=== PATIENT | female | born 1950 | race Caucasian/White ===

== ENCOUNTER 2016-08-23 11:00 | Outpatient (CLI) | payer OTHER ==
[~2016-08-23] VITALS: Ht 162.6 cm; Wt 73.6 kg
[~2016-08-23 11:00] MED LIST: BNZ20T PO; CTLP20T PO; INSASP10V SQ; INSU100V6 SQ; LOVA20TA2 PO; LVT.1T PO; MTF500T PO; SIMV10TA3 PO; TRAM50TA2 PO; TRHC5025 PO; TRIA1CAP4 PO
[2016-08-23] MEDS ORDERED: LISI-552 PO (11:03)
[2016-08-23] MEDS ORDERED: LOVA40TA2 PO (11:03)
[2016-08-23] MEDS ORDERED: GLIM2TAB PO (11:03)
[2016-08-23] MEDS ORDERED: PANT40TA2 PO (11:03)
[2016-08-23] MEDS ORDERED: LORA10TA7 PO (11:03)
[2016-08-23] MEDS ORDERED: LEVO75TA6 PO (11:03)
[2016-08-23] MEDS ORDERED: GABA-488 PO (11:03)
[2016-08-23] MEDS ORDERED: METF1000 PO (11:03)
--- OUTSIDE RECORDS SUMMARY | 2016-08-23 11:39 | XMS REPORT | Continuity of Care Document ---
Author Author [facility] Organization [facility] Address Unknown Phone Unavailable Care Team Providers Care Lens Cementer Name Role Phone BRYAN LITTLE MD PCP Insurance Providers Payer Name Policy Number Subscriber Name Relationship [employer] [id number] Venus Holcomb 19 Self / Same As Patient Advance Directives Directive Response Recorded Date/Time Advance Directives No 08/23/16 10:57am Health Care Power of Data Management Associate No 08/23/16 10:57am Organ Donor No 08/23/16 10:57am Resuscitation Status Full Code 08/23/16 10:57am Problems No problem information available. Medications Current Home Medications Medication Dose Units Route Directions Days/Qty Instructions Start Date Citalopram Hydrobromide 20 Mg 1 Each Oral Daily 03/29/10 Lisinopril 20 Mg 20 Mg Oral Daily 08/23/16 Metformin Hcl 1,000 Mg 1,000 Mg Oral Twice A Day 08/23/16 Glimepiride 2 Mg 2 Mg Oral Twice A Day 08/23/16 Pantoprazole Sodium 40 Mg 40 Mg Oral Daily 08/23/16 Lovastatin 40 Mg 40 Mg Oral Daily 08/23/16 Levothyroxine Sodium 75 Mcg 75 Mcg Oral Daily 08/23/16 Gabapentin 300 Mg 600 Mg Oral Bedtime 08/23/16 Loratadine 10 Mg 10 Mg Oral Daily 08/23/16 Past Home Medications Medication Directions Ordered Status Levothyroxine Sodium (Levothroid) 100 Mcg Tablet, 225 Mcg Oral Daily Discontinued Lovastatin (Mevacor) 20 Mg Tablet, 1 Each Oral Daily With Supper 03/27/10 Discontinued Tramadol Hcl 50 Mg Tablet, 50 Mg Oral As Needed 03/27/10 Discontinued Insulin Human Lispro 100 U/Ml Vial, 12 U Sub-Q Three Times A Day Before Meals 03/27/10 Discontinued Insulin Glargine,Hum.rec.anlog 100 Unit/1 Ml Vial, 18 Unit Sub-Q Bedtime 10/01 Discontinued Triamterene/Hctz 1 Ea Cap, 1 Ea Oral Daily 03/27/10 Discontinued Benazepril Hcl 20 Mg Tablet, 1 Each Oral Daily 03/27/10 Discontinued Metformin Hcl (Glucophage) 500 Mg Tablet, 1 Each Oral Twice A Day With Meals 03/29/10 Discontinued Triamterene/Hydrochlorothiazid 1 Each Capsule, 1 Each Oral Daily 03/29/10 Discontinued Simvastatin 10 Mg Tablet, 10 Mg Oral Daily 03/29/10 Discontinued Social History Social History Problem Response Recorded Date/Time Alcohol Use Denies Use 08/23/2016 10:57am Recreational Drug Use No 08/23/2016 10:57am Recent Foreign Travel No 08/23/2016 10:56am Recent Infectious Disease Exposure No 08/23/2016 10:56am Sexually Transmitted Disease No 08/23/2016 10:57am HIV/AIDS No 08/23/2016 10:57am Smoking Status Never a Smoker 08/23/2016 10:57am Recent Hopitalizations No 08/23/2016 10:57am Sexually Transmitted Disease No 08/23/2016 10:57am Query Response Start Date Stop Date Smoking Status Never a Smoker Hospital Discharge Instructions No hospital discharge instructions. Plan of Care Discharge Date 08/23/16 11:10am Prescriptions See Medication Section Functional Status No functional status results. Allergies, Adverse Reactions, Alerts Allergen Type Severity Reaction Status Last Updated iodine ([id number]) Allergy Unknown Active 02/07/06 CONTRAST DYE Allergy Unknown Active 02/07/06 Immunizations No immunization records. Vital Signs Acute Vital Signs Vital Response Date/Time Height (Feet) 5 feet 08/23/2016 10:55am Height (Inches) 4.00 inches 08/23/2016 10:55am Height (Calculated Centimeters) 162.877106 cm 08/23/2016 10:55am Weight (Pounds) 162 pounds 08/23/2016 10:55am Weight (Ounces) 4.8 oz 08/23/2016 10:55am Weight (Calculated Grams) 75867.04 gm 08/23/2016 10:55am Weight (Calculated Kilograms) 73.969509 kilograms 08/23/2016 10:55am Calculated BMI 27.9 08/23/2016 10:55am Results No known relevant diagnostic tests, laboratory data and/or discharge summary. Procedures No known history of procedures. Encounters Encounter Location Arrival/Admit Date Discharge/Depart Date Attending Provider Departed Clinic [facility] 08/23/16 11:00am 08/23/16 11: 10am RALF MARTINEZ MD
== END 2016-08-23 11:10 ==
LOC: PREOP 11:00
PROVIDERS: ATTEND Surgery Pediatric Surgery
DX: Z01.818 Encounter for other preprocedural examination (principal); Z12.11 Encounter for screening for malignant neoplasm of colon; R19.7 Diarrhea, unspecified

== ENCOUNTER 2016-08-24 09:55 | Day surgery (SDC) | payer OTHER ==
[~2016-08-24 09:55] MED LIST changes: +GABA-488 PO; +GLIM2TAB PO; +LEVO75TA6 PO; +LISI-552 PO; +LORA10TA7 PO; +LOVA40TA2 PO; +METF1000 PO; +PANT40TA2 PO
[2016-08-24 10:00] VITALS: BP 178/74
--- OUTSIDE RECORDS SUMMARY | 2016-08-24 10:00 | XMS REPORT | Continuity of Care Document ---
Author Author [facility] Organization [facility] Address Unknown Phone Unavailable Care Team Providers Care Aviation Electrical Technician Name Role Phone BRYAN LITTLE MD PCP Insurance Providers Payer Name Policy Number Subscriber Name Relationship [employer] [id number] Venus Holcomb 19 Self / Same As Patient Advance Directives Directive Response Recorded Date/Time Advance Directives No 08/23/16 10:57am Health Care Power of Laundry Technician No 08/23/16 10:57am Organ Donor No 08/23/16 [...] Type Severity Reaction Status Last Updated iodine ([id number]) Allergy Unknown Active 02/07/06 CONTRAST DYE Allergy Unknown Active 02/07/06 Immunizations No immunization records. Vital Signs Acute Vital Signs Vital Response Date/Time Height (Feet) 5 feet 08/23/2016 10:55am Height (Inches) 4.00 inches 08/23/2016 10:55am Height (Calculated Centimeters) 162.542573 cm 08/23/2016 10:55am Weight (Pounds) 162 pounds 08/23/2016 10:55am Weight (Ounces) 4.8 oz 08/23/2016 10:55am Weight (Calculated Grams) 93929.04 gm 08/23/2016 10:55am Weight (Calculated Kilograms) 73.881824 kilograms 08/23/2016 10:55am Calculated BMI 27.9 08/23/2016 10:55am Results No known relevant diagnostic tests, laboratory data and/or discharge summary. Procedures No known history of procedures. Encounters Encounter Location Arrival/Admit Date Discharge/Depart Date Attending Provider Departed Clinic [facility] 08/23/16 11:00am 08/23/16 11: 10am RALF MARTINEZ MD
--- OUTSIDE RECORDS SUMMARY | 2016-08-24 10:00 | XMS REPORT | Continuity of Care Document ---
Author Author [facility] Organization [facility] Address Unknown Phone Unavailable Care Team Providers Care Ambulance Mechanic Name Role Phone BRYAN LITTLE MD PCP Insurance Providers Payer Name Policy Number Subscriber Name Relationship [employer] [id number] Venus Holcomb 19 Self / Same As Patient Advance Directives Directive Response Recorded Date/Time Advance Directives No 08/23/16 10:57am Health Care Power of Maintenance Carpenter No 08/23/16 10:57am Organ Donor No 08/23/16 [...] Type Severity Reaction Status Last Updated iodine ([id number]) Allergy Unknown Active 02/07/06 CONTRAST DYE Allergy Unknown Active 02/07/06 Immunizations No immunization records. Vital Signs Acute Vital Signs Vital Response Date/Time Height (Feet) 5 feet 08/23/2016 10:55am Height (Inches) 4.00 inches 08/23/2016 10:55am Height (Calculated Centimeters) 162.605854 cm 08/23/2016 10:55am Weight (Pounds) 162 pounds 08/23/2016 10:55am Weight (Ounces) 4.8 oz 08/23/2016 10:55am Weight (Calculated Grams) 94280.04 gm 08/23/2016 10:55am Weight (Calculated Kilograms) 73.331396 kilograms 08/23/2016 10:55am Calculated BMI 27.9 08/23/2016 10:55am Results No known relevant diagnostic tests, laboratory data and/or discharge summary. Procedures No known history of procedures. Encounters Encounter Location Arrival/Admit Date Discharge/Depart Date Attending Provider Departed Clinic [facility] 08/23/16 11:00am 08/23/16 11: 10am RALF MARTINEZ MD
[2016-08-24] MEDS ORDERED: NS IV 500 ML 500 ML IV ONE (10:15)
[2016-08-24] MEDS ORDERED: FLUMAZENIL (ROMAZICON) 0.1 MG/ML 5 ML VIAL INJ PRN (10:15)
[2016-08-24] MEDS ORDERED: NALOXONE 0.4 MG/ML 1 ML (NARCAN) VIAL IVP PRN (10:15)
[2016-08-24] MEDS ORDERED: MIDAZOLAM 2 MG/2 ML (VERSED) VIAL ONE ×3 (10:33→10:34)
[2016-08-24] MEDS ORDERED: LIDOCAINE JELLY 2% (XYLOCAINE) 5 ML TUBE ONE (10:34)
[2016-08-24] MEDS ORDERED: fentaNYL INJECTION 100 MCG/2 ML AMP ONE ×2 (10:34)
--- NOTE | 2016-08-24 10:43 | Progress Note-Pre Operative ---
Pre-Operative Progress Note H&P Reviewed The H&P was reviewed, patient examined and no changes noted. Date H&P Reviewed: Aug 24, 2016 Time H&P Reviewed: 10:30 Pre-Operative Diagnosis: family hx colon cancer RALF MARTINEZ MD Aug 24, 2016 10:43 am
--- NOTE | 2016-08-24 10:43 | Conscious Sedation/ASA ---
Conscious Sedation Pre-Proced Time Reviewed: 10:30 ASA Class: 2 Airway Mallampati Classification: ([place]mitt appropriate class) I. II. III, IV Lungs Heart ASA score ASA 1: a normal healthy patient ASA 2: a patient with a mild systemic disease (mid diabetes, controlled hypertension, obesity ASA 3: a patient with a severe systemic disease that limits activity (angina , COPD, prior Myocardial infarction) ASA 4: a patient with an incapacitating disease that is a constant threat to life (CHF, renal failure) ASA 5: a moribund patient not expected to survive 24 hrs. (ruptured aneurysm) ASA 6: a declared brain patient whose organs are being harvested. For emergent operations, add the letter E after the classification Grade 2 Sedation Plan: Analgesia, Amnesia, Plan communicated to team members, Discussed options with patient/fam, Discussed risks with patient/fam Note The patient is an appropriate candidate to undergo the planned procedure, sedation, and anesthesia. The patient immediately re-assessed prior to indication. RALF MARTINEZ MD Aug 24, 2016 10:43 am
[2016-08-24] MEDS ORDERED: HYDROcodone/APAP 5 MG/325 MG (LORTAB) TAB PO PRN (10:45)
[2016-08-24] MEDS ORDERED: ACETAMINOPHEN 325 MG TABLET/CAPLET (TYLENOL) PO PRN (10:45)
[2016-08-24] MEDS ORDERED: morphine INJ 10 MG/ML 1ML (SYR OR VIAL) IV PRN (10:45)
[2016-08-24] MEDS ORDERED: ONDANSETRON 4 MG/2 ML (SDV) Z0FRAN IV PRN (10:45)
[2016-08-24] MEDS: fentaNYL INJECTION 100 MCG/2 ML AMP IVP PRN ×2 (10:48→10:55)
[2016-08-24] MEDS: MIDAZOLAM 2 MG/2 ML (VERSED) VIAL IVP PRN ×2 (10:50→11:00)
--- NOTE | 2016-08-24 11:15 | Progress Note-Post Operative ---
Post-Operative Progess Note Pre-Operative Diagnosis family hx colon cancer Post-Operative Diagnosis chronic stage 2 ext and int hemorrhoids, HP polyp rectosigmoid jxn(2mm), moderate sigmoid diverticulisosis. Post-Op Procedure Note Date of Procedure: Aug 24, 2016 Name of Procedure: Colonoscopy with bx Anesthesia Type CS Estimated blood loss (mL): minimal Specimen(s) collected rectosigmoid polyp RALF MARTINEZ MD Aug 24, 2016 11:15 am
--- NOTE | 2016-08-24 11:18 | Discharge Inst-Surgical ---
D/C Lap Instructions-KIDO New, Converted, or Re-Newed RX: RX on Chart Follow Up 5 years Activity as tolerated High Fiber Diet 25g or more per day Avoid Alcohol, Caffeine, Spicy Agenda and Acid foods. Drink 64 fluid oz or more of fluids per day. Symptoms to Report: Fever over 101 degree F, Nausea/Vomiting If any problems/questions: Contact your physician or go to Emergency Room RALF MARTINEZ MD Aug 24, 2016 11:17 am
[2016-08-24 11:20] VITALS: BP 137/69
[2016-08-24 11:50] VITALS: BP 148/77
--- NOTE | 2016-08-25 22:15 | PROCEDURE REPORT ---
PROCEDURE PHYSICIAN: RALF SAMPSON DATE OF PROCEDURE: 08/24/2016 ATTENDING PRIMARY REPRODUCTION PRODUCTION MANAGER: Dari Key APRN. PREOPERATIVE DIAGNOSIS: Family history of colon cancer. POSTOPERATIVE DIAGNOSES: 1. Chronic, stage II external and internal hemorrhoids. 2. Small hyperplastic polyp of the rectosigmoid junction approximately 2 mm in size. 3. Moderate severity sigmoid diverticulosis. PROCEDURE: Colonoscopy with biopsy. SURGEON: Dr. Sampson. ANESTHESIA: Conscious sedation. ESTIMATED BLOOD LOSS: Minimal. FINDINGS: 1. Chronic, stage II external and internal hemorrhoids. 2. Small hyperplastic polyp of the rectosigmoid junction approximately 2 mm in size. A moderate severity sigmoid diverticulosis with no mucosal inflammatory changes to indicate any active diverticulitis. 3. The remainder of the colon was normal. DISPOSITION: The patient tolerated the procedure well. BRIEF HISTORY: Mrs. Venus Holcomb is a 66-year-old female in need of a follow-up colonoscopy. She reports her last colonoscopy was approximately 7 or 8 years ago. She reports that she does have some occasional episodes of diarrhea as well as crampy abdominal pain. However, she does have a history of irritable bowel syndrome. She also does have a family history of colon cancer with her father having the disease. She does not report any red blood per rectum nor any dark tarry stools. PROCEDURE: The patient was brought to the endoscopy suite, laid in the left lateral decubitus position. After adequate IV pain and sedative medications and conscious sedation anesthesia, a digital rectal examination was performed. Chronic, stage II external and internal hemorrhoids were identified which were not actively edematous nor inflamed and no bleeding. Normal sphincter tone was felt and there were no palpable masses. The endoscope was then intubated into the anus and the rectum gently insufflated. The endoscope was then advanced through the valves of Aceves the rectum. At the level of the rectosigmoid junction was a small hyperplastic polyp approximately 2 mm in size. This was biopsied and destroyed using forceps and electrocautery with visualization of good hemostasis. The endoscope was then advanced through the sigmoid colon where a moderate sigmoid diverticulosis identified. There were no mucosal inflammatory changes to indicate any active diverticulitis. The endoscope was then advanced through the remainder of the descending, transverse, and ascending colon to the cecum. These segments were normal. The endoscope was then slowly withdrawn while taking a second look and suctioning of residual air with no additional findings. The patient tolerated the procedure well. We will have her continue with medical management with a high fiber diet with at least 30 grams of fiber per day, as well as at least 64 fluid ounces of water daily to promote soft stools on a daily basis. With a history of the polyp as well as family history of colon cancer, we will recommend a follow-up colonoscopy every 5 years. Job ID: [id number] Dictated Date: 08/24/2016 11:11:57 Advertising Space Clerk Date: 08/25/2016 22:03:28 / timmy
== END 2016-08-24 12:20 | disposition home or self-care (01) ==
LOC: ENDO 09:55
PROVIDERS: ATTEND Surgery Pediatric Surgery
DX: Z12.11 Encounter for screening for malignant neoplasm of colon (principal); K63.5 Polyp of colon; K64.1 Second degree hemorrhoids; K57.30 Diverticulosis of large intestine without perforation or abscess without bleeding; Z80.0 Family history of malignant neoplasm of digestive organs
CPT/HCPCS: 88305

== ENCOUNTER 2017-12-31 17:10 | Emergency (ER) | payer OTHER, MEDICARE ==
[~2017-12-31] VITALS: Ht 162.6 cm; Wt 70.3 kg
[~2017-12-31 17:10] MED LIST changes: -METF1000 PO; +METF10002 PO
[2017-12-31] MEDS ORDERED: KETOROLAC 30 MG/ML VIAL IVP ONE (17:30)
[2017-12-31] MEDS ORDERED: fentaNYL INJECTION 100 MCG/2 ML AMP IVP ONE (17:30)
[2017-12-31] MEDS ORDERED: ONDANSETRON 4 MG/2 ML (SDV) Z0FRAN IVP ONE ×2 (17:30→18:00)
[2017-12-31] MEDS ORDERED: NS IV 1000 ML 1,000 ML IV SCH (17:30)
--- NOTE | 2017-12-31 17:32 | ED Abdominal Pain ---
General Stated Complaint: L SIDE PAIN, POSS KIDNEY STONE Source of Information: Patient Exam Limitations: No Limitations History of Present Illness Date Seen by Provider: Dec 31, 2017 Time Seen by Provider: 17:28 Initial Comments Patient is a 67-year-old female who comes in with left lower flank pain that radiates into her back for 2 days and severe nausea. She reports the pain has just gotten worse over the past 2 days. She reports having a history of kidney stones and she says that this feels very similar to a kidney stone pain. Timing/Duration: 1-2 Days Severity/Quality: Moderate Location: LLQ, Flank Radiation: Back Activities at Onset: None Associated Symptoms: Back Pain, Nausea/Vomiting Allergies and Home Medications Allergies Coded Allergies: iodine (Verified Allergy, Unknown, 02/07/06) Uncoded Allergies: CONTRAST DYE (Allergy, Unknown, 02/07/06) Home Medications Ciprofloxacin HCl 500 Mg Tablet, 500 MG PO BID Prescribed by: TEDDY CASTELLANOS on 12/31/171941 Citalopram Hydrobromide 20 Mg Tablet, 1 EACH PO DAILY, (Reported) Gabapentin 300 Mg Capsule, 600 MG PO HS, (Reported) Glimepiride 2 Mg Tablet, 2 MG PO BID, (Reported) Hydrocodone Bit/Acetaminophen 1 Tab Tab, 1 EACH PO Q4H PRN for PAIN-MODERATE Prescribed by: TEDDY CASTELLANOS on 12/31/171941 Levothyroxine Sodium 75 Mcg Tablet, 75 MCG PO DAILY, (Reported) Lisinopril 20 Mg Tablet, 20 MG PO DAILY, (Reported) Loratadine 10 Mg Tablet, 10 MG PO DAILY, (Reported) Lovastatin 40 Mg Tablet, 40 MG PO DAILY, (Reported) Metformin HCl 1,000 Mg Tablet, 1,000 MG PO BID, (Reported) Metronidazole 500 Mg Tablet, 500 MG PO BID Prescribed by: TEDDY CASTELLANOS on 12/31/171941 Ondansetron 4 Mg Tab.rapdis, 4 MG PO Q6H PRN for NAUSEA/VOMITING Prescribed by: TEDDY CASTELLANOS on 12/31/171941 Pantoprazole Sodium 40 Mg Tablet.dr, 40 MG PO DAILY, (Reported) Patient Home Medication List Home Medication List Reviewed: Yes Review of Systems Constitutional: see HPI; No chills, No diaphoresis EENTM: See HPI; No Blurred Vision, No Double Vision Respiratory: See HPI; Denies Cough, Denies Orthopnea Cardiovascular: See HPI; Denies Chest Pain, Denies Edema Gastrointestinal: See HPI, Abdominal Pain (left lower quadrant/flank pain) Genitourinary: See HPI, Flank Pain, Pain Musculoskeletal: see HPI, back pain; No joint pain, No joint swelling Skin: see HPI; No change in color, No change in hair/nails Psychiatric/Neurological: See HPI; Denies Anxiety, Denies Depressed Endocrine: See HPI; Denies Excessive Sweating, Denies Flushing Hematologic/Lymphatic: See HPI; Denies Anemia, Denies Blood Clots All Other Systems Reviewed Negative Unless Noted: Yes Past Jdnfcob-Ftywrg-Cwknrc Hx Past Med/Social Hx: Reviewed Nursing Past Med/Soc Hx Patient Social History Recent Foreign Travel: No Contact w/Someone Who Travel: No Recent Hopitalizations: No Immunizations Up To Date Date of Pneumonia Vaccine: Apr 07, 2015 Date of Influenza Vaccine: Apr 02, 2016 Seasonal Allergies Seasonal Allergies: Yes Past Medical History Gallbladder High Cholesterol, Hypertension Headaches /Migraines Reproductive Disorders: No Sexually Transmitted Disease: No HIV/AIDS: No Kidney Stones Gastroesophageal Reflux, Chronic Diarrhea, Irritable Bowel Arthritis Diabetes, Non-Insulin dep Adverse Reaction/Blood Tranf: No Family Medical History Reviewed Nursing Family Hx Physical Exam Vital Signs Vital Signs - First Documented 12/31/17 12/31/17 17:15 19:54 Temp 97.6 Pulse 72 Resp 17 B/P (MAP) 121/84 (96) Pulse Ox 96 O2 Delivery Room Air Capillary Refill : Height/Weight/BMI Height: 5', 4.00" Weight: 162lbs 4.8oz, [id number] Method: ,27.9BMI General Appearance: WD/WN, no apparent distress HEENT: PERRL/EOMI, normal ENT inspection, TMs normal, pharynx normal Neck: non-tender, full range of motion, supple, normal inspection Respiratory: chest non-tender, lungs clear, normal breath sounds, no respiratory distress, no accessory muscle use Cardiovascular: regular rate, rhythm, no edema, no gallop, no JVD, no murmur Gastrointestinal: normal bowel sounds, soft, no organomegaly, no pulsatile mass , tenderness (patient is very tender in her left lower quadrant.) Extremities: normal range of motion, non-tender, normal inspection, no pedal edema, no calf tenderness Back: normal inspection, no CVA tenderness, no vertebral tenderness Neurologic/Psychiatric: alert, normal mood/affect, oriented x 3 Skin: normal color, warm/dry Lymphatic: no adenopathy Progress/Results/Core Measures Results/Orders Lab Results Laboratory Tests Test 12/31/17 17:11 12/31/17 17:15 12/31/17 17:30 Range/Units Lab Scanned Report Referred Lab Report [id number] Urine Color YELLOW Urine Clarity CLEAR Urine pH 5 5-9 Urine Specific [place] 1.020 1.016-1.022 Urine Protein 3+ H NEGATIVE Urine Glucose (UA) 1+ H NEGATIVE Urine Ketones NEGATIVE NEGATIVE Urine Nitrite NEGATIVE NEGATIVE Urine Bilirubin NEGATIVE NEGATIVE Urine Urobilinogen NORMAL NORMAL MG/DL Urine Leukocyte Esterase 3+ H NEGATIVE Urine RBC (Auto) 2+ H NEGATIVE Urine RBC NONE /HPF Urine WBC 50-100 H /HPF Urine Squamous Epithelial Cells 10-25 H /HPF Urine Crystals NONE /LPF Urine Bacteria MODERATE H /HPF Urine Casts NONE /LPF Urine Mucus NEGATIVE /LPF Urine Culture Indicated YES White Blood Count 8.9 4.3-11.0 10^3/uL Red Blood Count 4.93 4.35-5.85 10^6/uL Hemoglobin 14.3 11.5-16.0 G/DL Hematocrit 41 35-52 % Mean Corpuscular Volume 83 80-99 FL Mean Corpuscular Hemoglobin 29 25-34 PG Mean Corpuscular Hemoglobin Concent 35 32-36 G/DL Red Cell Distribution Width 12.4 10.0-14.5 % Platelet Count 230 130-400 10^3/uL Mean Platelet Volume 11.1 H 7.4-10.4 FL Neutrophils (%) (Auto) 65 42-75 % Lymphocytes (%) (Auto) 24 12-44 % Monocytes (%) (Auto) 8 0-12 % Eosinophils (%) (Auto) 3 0-10 % Basophils (%) (Auto) 0 0-10 % Neutrophils # (Auto) 5.8 1.8-7.8 X 10^3 Lymphocytes # (Auto) 2.1 1.0-4.0 X 10^3 Monocytes # (Auto) 0.7 0.0-1.0 X 10^3 Eosinophils # (Auto) 0.2 0.0-0.3 10^3/uL Basophils # (Auto) 0.0 0.0-0.1 10^3/uL Sodium Level 140 135-145 MMOL/L Potassium Level 4.0 3.6-5.0 MMOL/L Chloride Level 107 98-107 MMOL/L Carbon Dioxide Level 21 21-32 MMOL/L Anion Gap 12 5-14 MMOL/L Blood Urea Nitrogen 20 H 7-18 MG/DL Creatinine 1.17 0.60-1.30 MG/DL Estimat Glomerular Filtration Rate 46 BUN/Creatinine Ratio 17 Glucose Level 161 H 70-105 MG/DL Calcium Level 9.5 8.5-10.1 MG/DL Total Bilirubin 0.6 0.1-1.0 MG/DL Aspartate Amino Transf (AST/SGOT) 17 5-34 U/L Alanine Aminotransferase (ALT/SGPT) 16 0-55 U/L Alkaline Phosphatase 76 40-136 U/L Total Protein 7.0 6.4-8.2 GM/DL Albumin 4.3 3.2-4.5 GM/DL Micro Results Microbiology 12/31/17 Urine Culture - Final, Complete Escherichia coli See Comments Sent To l My Orders Orders - MELODY LARA Saline Lock/Iv-Start (12/31/17 17:21) Ua Culture If Indicated (12/31/17 17:21) Ns Iv 1000 Ml (Sodium Chloride 0.9%) (12/31/17 17:30) Ketorolac Injection (Toradol Injection) (12/31/17 17:30) Fentanyl Injection (Sublimaze Injection (12/31/17 17:30) Ondansetron Injection (Zofran Injectio (12/31/17 17:30) Comprehensive Metabolic Panel (12/31/17 17:27) Cbc With Automated Diff (12/31/17 17:27) Ondansetron Injection (Zofran Injectio (12/31/17 18:00) Ct Abd/Pelvis Wo(Kidney Stone) (12/31/17 18:20) Abdomen/Kub 1view (12/31/17 18:20) Urine Culture (12/31/17 17:15) Lisinopril Tablet (Zestril Tablet) (12/31/17 20:15) Iv Push [employer] (12/31/17 ) Medications Given in ED Vital Signs/I&O 12/31/17 12/31/17 17:15 19:54 Temp 97.6 97.6 Pulse 72 69 Resp 17 15 B/P (MAP) 121/84 (96) 180/93 Pulse Ox 96 O2 Delivery Room Air Room Air Progress Progress Note : Progress Note Patient agrees with plan to discharge and the use of antibiotics. The case was reviewed with Dr. Castellanos and he agrees with plan of care. Diagnostic Imaging Diagonstic Imaging: Xray, CT Plain Films/CT/US/NM/MRI: abdomen Comments NAME: ERICA VEE [facility] REC#: [id number] PT STATUS: REG ER : 1950 PHYSICIAN: MELODY LARA ADMIT DATE: 12/31/17/ER Signed Date of Exam: 12/31/17 ABDOMEN/KUB 1VIEW INDICATION: Left-sided back pain and flank pain. KUB obtained at 6:39 p.m. FINDINGS: There are surgical clips in the right upper quadrant. There is moderate stool throughout the colon, but no overt obstruction or ileus. There are two calcifications overlying the lower pole of the left kidney, each measuring about 5-6 mm in diameter. Bony structures are unremarkable. IMPRESSION: There are two adjacent calcifications overlying the lower pole of the left kidney. No other abnormal calcifications are visualized. The bowel gas pattern is unremarkable. Patient appears to have had prior cholecystectomy. Dictated by: Dictated on workstation # [id number] Dict: 12/31/171841 Trans: 12/31/171848 Interpreted by: NAN GARCIA MD Electronically signed by: NAN GARCIA MD 12/31/171848 NAME: ERICA VEE [facility] REC#: [id number] PHYSICIAN: MELODY LARA CC: MARYSOL LARA STEPHEN D MD Page 2 of 2 RADIOLOGY REPORT VIA [facility]. [place], [place] CC: MARYSOL LARA STEPHEN D MD Page 1 of 2 RADIOLOGY REPORT NAME: ERICA VEE [facility] REC#: [id number] PT STATUS: REG ER : 1950 PHYSICIAN: MELODY LARA ADMIT DATE: 12/31/17/ER Signed Date of Exam: 12/31/17 CT ABD/PELVIS WO(KIDNEY STONE) PROCEDURE: CT urinary tract, rule out kidney stone. TECHNIQUE: Multiple contiguous axial images were obtained through the abdomen and pelvis without the use of intravenous contrast. INDICATION: Left-sided flank pain. Comparison is made with prior CT from 03/28/2010. FINDINGS: The lung bases are clear. No discrete liver mass is identified. The gallbladder is surgically absent. The pancreas and spleen are unremarkable. No adrenal mass is identified. There are bilateral nonobstructing renal calculi. Largest calculus is in the lower pole of the left kidney measuring 8 mm. No hydronephrosis or ureteral calculi are seen. Aorta is nonaneurysmal. Small and large bowel loops are normal caliber. There is diverticulosis of the descending colon and sigmoid. There is a suggestion of mild inflammation adjacent to the sigmoid, suspicious for acute diverticulitis. No abscess formation or bowel obstruction is seen. There is no free air. The bladder is unremarkable. IMPRESSION: 1. Bilateral nonobstructing nephrolithiases. No ureteral calculi or hydronephrosis is detected. 2. Findings suggestive of mild acute diverticulitis of the sigmoid colon. No abscess formation or bowel obstruction is identified. Dictated by: Dictated on workstation # [id number] Dict: 12/31/174 Trans: 12/31/171907 Interpreted by: CHEO BLACKMON MD Electronically signed by: CHEO BLACKMON MD 12/31/171907 Reviewed: Reviewed by Me Departure Impression Primary Impression: Diverticulitis Additional Impression: Urinary tract infection Qualified Codes: N39.0 - Urinary tract infection, site not specified Disposition: 01 HOME, SELF-CARE Condition: Stable/Unchanged Departure-Patient Inst. Decision time for Depature: 19:44 Referrals: [facility] (PCP) Primary Care Physician TARYN CAMACHO (Family) Primary Care Physician Patient Instructions: Diverticulosis (DC), Urinary Tract Infection, Adult (DC) Add. Discharge Instructions: Take medications as directed. Return back to the emergency room for any concerns as needed such as increased pain, nausea, vomiting. Follow-up with your doctor within 1 week for recheck. Scripts Ondansetron (Ondansetron Odt) 4 Mg Tab.rapdis 4 MG PO Q6H PRN for NAUSEA/VOMITING, #8 TAB 0 Refills Prov: TEDDY CASTELLANOS MD 12/31/17 Metronidazole (Metronidazole) 500 Mg Tablet 500 MG PO BID, #14 TAB 0 Refills Prov: TEDDY CASTELLANOS MD 12/31/17 Hydrocodone Bit/Acetaminophen (Hydrocodone/Acetaminophen 5/325mg Tablet) 1 Tab Tab 1 EACH PO Q4H PRN for PAIN-MODERATE, #12 TAB 0 Refills Prov: TEDDY CASTELLANOS MD 12/31/17 Ciprofloxacin HCl (Ciprofloxacin HCl) 500 Mg Tablet 500 MG PO BID, #14 TAB Prov: TEDDY CASTELLANOS MD 12/31/17 Work/School Note: Work Release Form Date Seen in the Emergency Department: Dec 31, 2017 Return to Work: Jan 03, 2018 Restrictions: No Restrictions MELODY LARA Dec 31, 2017 17:32
[2017-12-31 17:36] LABS: BASOPHILS % (AUTO) 0 % (0-10); EOSINOPHILS # (AUTO) 0.2 10^3/uL (0.0-0.3); EOSINOPHILS % (AUTO) 3 % (0-10); HEMATOCRIT 41 % (35-52); HEMOGLOBIN 14.3 G/DL (11.5-16.0); LYMPHOCYTES # (AUTO) 2.1 X 10^3 (1.0-4.0); LYMPHOCYTES % (AUTO) 24 % (12-44); MEAN CORPUSCULAR HEMOGLOBIN 29 PG (25-34); MEAN CORPUSCULAR HGB CONC 35 G/DL (32-36); MEAN CORPUSCULAR VOLUME 83 FL (80-99); MEAN PLATELET VOLUME 11.1 FL (7.4-10.4); MONOCYTES # (AUTO) 0.7 X 10^3 (0.0-1.0); MONOCYTES % (AUTO) 8 % (0-12); NEUTROPHILS # (AUTO) 5.8 X 10^3 (1.8-7.8); NEUTROPHILS % (AUTO) 65 % (42-75); PLATELET COUNT 230 10^3/uL (130-400); RED BLOOD COUNT 4.93 10^6/uL (4.35-5.85); RED CELL DISTRIBUTION WIDTH 12.4 % (10.0-14.5); WHITE BLOOD COUNT 8.9 10^3/uL (4.3-11.0)
[2017-12-31 17:59] LABS: ALBUMIN 4.3 GM/DL (3.2-4.5); BILIRUBIN,TOTAL 0.6 MG/DL (0.1-1.0); CALCIUM 9.5 MG/DL (8.5-10.1); CREATININE SERUM 1.17 MG/DL (0.60-1.30)
[2017-12-31 18:13] LABS: BILIRUBIN,URINE NEGATIVE (NEGATIVE); CLARITY,URINE CLEAR; COLOR,URINE YELLOW; GLUCOSE, URINE (UA) 1+ (NEGATIVE); KETONES,URINE NEGATIVE (NEGATIVE); LEUKOCYTE ESTERASE ,URINE 3+ (NEGATIVE); NITRITE,URINE NEGATIVE (NEGATIVE); PH,URINE 5 (5-9); PROTEIN,URINE 3+ (NEGATIVE); UROBILINOGEN,URINE NORMAL (NORMAL)
[2017-12-31 18:21] LABS: WBC,URINE 50-100 /HPF
[2017-12-31 18:22] LABS: BACTERIA,URINE MODERATE /HPF
--- NOTE | 2017-12-31 18:49 | Diagnostic Imaging Report ---
INDICATION: Left-sided back pain and flank pain. KUB obtained at 6:39 p.m. FINDINGS: There are surgical clips in the right upper quadrant. There is moderate stool throughout the colon, but no overt obstruction or ileus. There are two calcifications overlying the lower pole of the left kidney, each measuring about 5-6 mm in diameter. Bony structures are unremarkable. IMPRESSION: There are two adjacent calcifications overlying the lower pole of the left kidney. No other abnormal calcifications are visualized. The bowel gas pattern is unremarkable. Patient appears to have had prior cholecystectomy. Dictated by: Dictated on workstation # [id number]
--- NOTE | 2017-12-31 19:01 | Diagnostic Imaging Report ---
PROCEDURE: CT urinary tract, rule out kidney stone. TECHNIQUE: Multiple contiguous axial images were obtained through the abdomen and pelvis without the use of intravenous contrast. INDICATION: Left-sided flank pain. Comparison is made with prior CT from 03/28/2010. FINDINGS: The lung bases are clear. No discrete liver mass is identified. The gallbladder is surgically absent. The pancreas and spleen are unremarkable. No adrenal mass is identified. There are bilateral nonobstructing renal calculi. Largest calculus is in the lower pole of the left kidney measuring 8 mm. No hydronephrosis or ureteral calculi are seen. Aorta is nonaneurysmal. Small and large bowel loops are normal caliber. There is diverticulosis of the descending colon and sigmoid. There is a suggestion of mild inflammation adjacent to the sigmoid, suspicious for acute diverticulitis. No abscess formation or bowel obstruction is seen. There is no free air. The bladder is unremarkable. IMPRESSION: 1. Bilateral nonobstructing nephrolithiases. No ureteral calculi or hydronephrosis is detected. 2. Findings suggestive of mild acute diverticulitis of the sigmoid colon. No abscess formation or bowel obstruction is identified. Dictated by: Dictated on workstation # [id number]
[2017-12-31] MEDS ORDERED: ACHD5005 PO (19:42)
[2017-12-31] MEDS ORDERED: CIPR500T4 PO (19:42)
[2017-12-31] MEDS ORDERED: METR500T21 PO (19:42)
[2017-12-31] MEDS ORDERED: ONDA4TAB11 PO (19:42)
[2017-12-31 19:54] VITALS: BP 180/93
[2017-12-31] MEDS ORDERED: lisINopril 20 MG (PRINIVIL) TABLET PO ONE (20:15)
== END 2017-12-31 20:28 | disposition home or self-care (01) ==
LOC: EDUNIT# 17:10 → ER 17:11
DX: N39.0 Urinary tract infection, site not specified (principal); K57.32 Diverticulitis of large intestine without perforation or abscess without bleeding; E78.00 Pure hypercholesterolemia, unspecified; I10 Essential (primary) hypertension; G43.909 Migraine, unspecified, not intractable, without status migrainosus; K21.9 Gastro-esophageal reflux disease without esophagitis; M19.90 Unspecified osteoarthritis, unspecified site; E11.9 Type 2 diabetes mellitus without complications; Z87.442 Personal history of urinary calculi; Z91.041 Radiographic dye allergy status; Z79.84 Long term (current) use of oral hypoglycemic drugs
CPT/HCPCS: 36415; 74018; 74176; 80053; 81000; 85025; 87077; 87088; 87186; 96361; 96374; 96375; 96376

== ENCOUNTER 2018-01-29 05:41 | Outpatient (CLI) | payer OTHER, MEDICARE ==
[~2018-01-29] VITALS: Ht 162.6 cm; Wt 68.0 kg
[~2018-01-29 05:41] MED LIST changes: +ACHD5005 PO; +CIPR500T4 PO; +METR500T21 PO; +ONDA4TAB11 PO
[2018-01-29] MEDS ORDERED: LEVO25TA5 PO (13:24)
[2018-01-29] MEDS ORDERED: CITA20TA9 PO (13:24)
[2018-01-29] MEDS ORDERED: RANI-515 PO (13:26)
[2018-01-29] MEDS ORDERED: DICL35CA PO (13:26)
== END 2018-01-29 13:37 ==
LOC: PREOP 05:41
PROVIDERS: ATTEND Urology
DX: Z01.818 Encounter for other preprocedural examination (principal); N20.0 Calculus of kidney

== ENCOUNTER 2018-02-05 06:59 | Day surgery (SDC) | payer OTHER, MEDICARE ==
[~2018-02-05] VITALS: Ht 162.6 cm; Wt 68.0 kg
[~2018-02-05 06:59] MED LIST changes: +CITA20TA9 PO; +DICL35CA PO; +LEVO25TA5 PO; +RANI-515 PO
[2018-02-05 07:00] VITALS: BP 147/79
--- OUTSIDE RECORDS SUMMARY | 2018-02-05 07:02 | XMS REPORT ---
Author Author DUANE YEH [facility] Address [address] [place] [address] Care Team Providers Care Distributor Advertising Material Name Role Phone DUANE YEH Unavailable PROBLEMS Unknown Problems ALLERGIES Substance Reaction Event Type Date Status Contrast Allergy PreMed Pack Unknown Drug Allergy Apr, Active ENCOUNTERS Encounter Location Date Diagnosis [facility] [address] [facility] [id number] [address] Apr, Acute pain of right shoulder M25.511 IMMUNIZATIONS No Known Immunizations SOCIAL HISTORY Never Assessed REASON FOR VISIT Right shoulder/rib pain for about 1 month JStrasserRN PLAN OF CARE Activity Details Follow Up prn Reason: VITAL SIGNS Weight 158.4 lbs 2017-04-27 Temperature 97.8 degrees Fahrenheit 2017-04-27 Heart Rate 76 bpm 2017-04-27 Respiratory Rate 20 2017-04-27 Blood pressure systolic 138 mmHg 2017-04-27 Blood pressure diastolic 92 mmHg 2017-04-27 MEDICATIONS Medication Instructions Dosage Frequency Start Date End Date Duration Status Glimepiride 1 MG Orally Once a day 1 tablet with breakfast or the first main meal of the day 24h Active Metformin HCl 500 MG Orally Twice a day 1 tablet with meals 12h Active Levothyroxine Sodium 75 MCG Orally Once a day 1 tablet on an empty stomach in the morning 24h Active Cyclobenzaprine HCl 10 MG Orally Three times a day 1 tablet as needed 8h Apr, Apr, 7 days Active Lovastatin 10 MG Orally Once a day 1 tablet with a meal 24h Active Lisinopril 20 MG Orally Once a day 1 tablet 24h Active RESULTS No Results PROCEDURES Procedure Date Ordered Result Body Site [facility] VISIT ESTABLISHED PATIENT Apr 27, 2017 INSTRUCTIONS MEDICATIONS ADMINISTERED No Known Medications
[2018-02-05] MEDS ORDERED: LACTATED RINGERS 1,000 ML IV PRN (07:14)
[2018-02-05] MEDS ORDERED: cefTRIAXone INJECTION 1,000 MG in NS (IVPB) 50 ML IV ONE (07:15)
[2018-02-05] MEDS ORDERED: CATHETER FLUSH 10 ML SYR IV PRN (07:30)
--- NOTE | 2018-02-05 07:35 | Diagnostic Imaging Report ---
INDICATION: Nephrolithiasis. Comparison made with prior examination 12/31/2017. FINDINGS: There are surgical clips in right upper quadrant. Bowel gas pattern is nonspecific. There is a persistent stone projected over the left kidney. There are mild degenerative changes in the spine. IMPRESSION: Persistent left nephrolithiasis. No specific bowel gas pattern. Dictated by: Dictated on workstation # [id number]
--- NOTE | 2018-02-05 07:47 | Progress Note-Pre Operative ---
Pre-Operative Progress Note H&P Reviewed The H&P was reviewed, patient examined and no changes noted. Date Seen by Provider: Feb 05, 2018 Time Seen by Provider: 07:47 Date H&P Reviewed: Feb 05, 2018 Time H&P Reviewed: 07:47 Pre-Operative Diagnosis: LT RENAL STONES ULISSES BARRERA MD Feb 05, 2018 7:47 am
[2018-02-05] MEDS ORDERED: KETOROLAC 30 MG/ML VIAL ONE (08:40)
[2018-02-05] MEDS ORDERED: LIDOCAINE PF 2% 5 ML (XYLOCAINE) VIAL ONE (08:40)
[2018-02-05] MEDS ORDERED: proPOfol 200 MG/20 ML (DIPRIVAN) VIAL IV ONE (08:40)
[2018-02-05] MEDS ORDERED: FUROSEMIDE 40 MG/4 ML INJ (LASIX) ONE (08:40)
[2018-02-05] MEDS ORDERED: fentaNYL INJECTION 100 MCG/2 ML AMP ONE (08:41)
[2018-02-05] MEDS ORDERED: MIDAZOLAM 2 MG/2 ML (VERSED) VIAL ONE (08:41)
[2018-02-05] MEDS ORDERED: ONDANSETRON 4 MG/2 ML (SDV) Z0FRAN ONE (08:43)
[2018-02-05] MEDS ORDERED: SEVOFLURANE (ULTANE) 15 ML INHAL SOLN ONE (09:14)
--- NOTE | 2018-02-05 09:15 | Progress Note-Post Operative ---
Post-Operative Progess Note Surgeon (s)/Business Systems Administrator (s) Surgeon ULISSES BARRERA MD Business Systems Administrator: N/A Pre-Operative Diagnosis LT RENAL STONES Post-Operative Diagnosis SAME Procedure & Operative Findings Date of Procedure 02/05/18 Procedure Performed/Findings LT ESWL Anesthesia Type GENERAL Estimated Blood Loss Estimated blood loss (mL): N/A Specimens/Packing Specimens Removed N/A Packing: N/A ULISSES BARRERA MD Feb 05, 2018 9:15 am
--- NOTE | 2018-02-05 09:16 | Discharge Inst-Urology ---
Discharge Inst-Urology Discharge Medications New, Converted, or Re-newed RX: RX on Chart Patient Instructions/Follow Up Plan Please make appointment to been seen in office Saturday 02/17, DALI prior to it. DALI on way home Post ESWL instructions Increase oral fluids for 48 hours and then as needed. Diet and Activity as tolerated. If questions or concerns contact your physician Or seek help at emergency department. ULISSES BARRERA MD Feb 05, 2018 9:16 am
[2018-02-05] MEDS ORDERED: morphine INJ 10 MG/ML 1ML (SYR OR VIAL) IVP PRN (10:00)
[2018-02-05] MEDS ORDERED: MEPERIDINE (DEMEROL) INJ 50 MG/ML IVP PRN (10:00)
[2018-02-05] MEDS ORDERED: ONDANSETRON 4 MG/2 ML (SDV) Z0FRAN IVP PRN (10:00)
[2018-02-05 10:35] VITALS: BP 163/80
[2018-02-05 11:05] VITALS: BP 157/73
[2018-02-05 11:45] VITALS: BP 140/67
[2018-02-05] MEDS ORDERED: TAMS0.4C98 PO (13:19)
[2018-02-05] MEDS ORDERED: HYDR-3870 PO (13:19)
[2018-02-05] MEDS ORDERED: NITR-65 PO (13:19)
[2018-02-05 13:42] VITALS: BP 140/67
--- NOTE | 2018-02-05 14:54 | Anesthesia-General Post-Op ---
General Patient Condition Mental Status/LOC: Same as Preop Cardiovascular: Satisfactory Nausea/Vomiting: Absent Respiratory: Satisfactory Pain: Controlled Complications: Absent Post Op Complications Complications None Follow Up Care/Instructions Patient Instructions None needed. Anesthesia/Patient Condition Patient Condition Patient is doing well, no complaints, stable vital signs, no apparent adverse anesthesia problems. No complications reported per nursing. MITZI GOODE CRNA Feb 05, 2018 14:54
--- NOTE | 2018-02-05 15:20 | Diagnostic Imaging Report ---
INDICATION: Status post lithotripsy. TIME OF EXAM: 1:38 PM COMPARISON: Correlation is made to prior study earlier same day. FINDINGS: There has been fragmentation of the calculus overlying the left kidney seen this morning. No definite calculi along the course of the ureters is seen. No right-sided calculi are identified. There are surgical clips in the right upper quadrant. IMPRESSION: Fragmentation of the large calculus in the left kidney, status post lithotripsy. Dictated by: Dictated on workstation # [id number]
--- NOTE | 2018-02-05 15:48 | OPERATIVE REPORT ---
DATE OF SERVICE: 02/05/2018 PREOPERATIVE DIAGNOSIS: Left renal stones. POSTOPERATIVE DIAGNOSIS: Left renal stones. OPERATION PERFORMED: Left ESWL. SURGEON: Axel Barrera MD ANESTHESIA: General. COMPLICATIONS: None. DESCRIPTION OF PROCEDURE: Under satisfactory general anesthesia, the patient in supine position on the ESWL table, the left renal stones were localized. Shocks were delivered at a kV of 4. A total of 3000 shocks completely fragmented the stones. The patient received 40 mg of Lasix and 30 mg of Toradol IV at the end of the procedure. She tolerated the procedure and anesthesia well and was sent to recovery room in stable condition. Job ID: [id number] DocumentID: [id number] Dictated Date: 02/05/2018 09:35:36 Stranding Machine Operator Date: 02/05/2018 15:48:12 Dictated By: AXEL BARRERA MD
== END 2018-02-05 13:42 | disposition home or self-care (01) ==
LOC: SDC 06:59
PROVIDERS: ATTEND Urology
DX: N20.0 Calculus of kidney (principal); Z11.2 Encounter for screening for other bacterial diseases; K21.9 Gastro-esophageal reflux disease without esophagitis; F32.9 Major depressive disorder, single episode, unspecified; Z79.84 Long term (current) use of oral hypoglycemic drugs; Z79.899 Other long term (current) drug therapy; I10 Essential (primary) hypertension; E11.9 Type 2 diabetes mellitus without complications; E78.5 Hyperlipidemia, unspecified
CPT/HCPCS: 74018; 82962; 87081

== ENCOUNTER 2018-03-08 14:24 | Emergency (ER) | payer OTHER, MEDICARE ==
[~2018-03-08] VITALS: Ht 162.6 cm; Wt 74.8 kg
[~2018-03-08 14:24] MED LIST changes: +HYDR-3870 PO; +METF-399 PO; -METF10002 PO; +NITR-65 PO; +TAMS0.4C98 PO
--- NOTE | 2018-03-08 14:41 | ED Lower Extremity ---
General Chief Complaint: Lower Extremity Stated Complaint: HURT RT FOOT Source: patient Exam Limitations: no limitations History of Present Illness Date Seen by Provider: Mar 08, 2018 Time Seen by Provider: 14:38 Initial Comments To ER with reports of right foot being injured. She was moving her 's electric wheelchair and tried to put up the foot rest. Normally she gets out of the wheelchair to do this but this time she stayed in the wheelchair. She then asked him to control her causing the wheelchair to move forward and pinched the right foot between the foot rest in the back of the wheelchair. She is ambulatory but has pain with ambulation. Onset: just prior to arrival Severity: moderate Pain/Injury Location: right foot Modifying Factors: Worse With Movement Allergies and Home Medications Allergies Coded Allergies: Iodinated Contrast- Oral and IV Dye (Unverified Allergy, Unknown, 02/05/18) iodine (Verified Allergy, Unknown, 02/07/06) Home Medications Citalopram Hydrobromide 20 Mg Tablet, 20 MG PO DAILY, (Reported) Diclofenac Submicronized 35 Mg Capsule, 35 MG PO BID, (Reported) Glimepiride 2 Mg Tablet, 2 MG PO BID, (Reported) Hydrocodone/Acetaminophen 1 Each Tablet, 1-2 EACH PO Q4H PRN for PAIN Prescribed by: JAME RUST on 02/05/181318 Levothyroxine Sodium 25 Mcg Tablet, 25 MCG PO DAILY, (Reported) Lisinopril 20 Mg Tablet, 20 MG PO DAILY, (Reported) Lovastatin 40 Mg Tablet, 40 MG PO DAILY, (Reported) Metformin HCl 1,000 Mg Tablet, 1,000 MG PO BID, (Reported) Nitrofurantoin Monohyd/M-Cryst 100 Mg Capsule, 1 TAB PO BID Prescribed by: JAME RUST on 02/05/181318 Ranitidine HCl 150 Mg Tablet, 150 MG PO DAILY, (Reported) Tamsulosin HCl 0.4 Mg Cap, 0.4 MG PO DAILY Prescribed by: JAME RUST on 02/05/181318 Patient Home Medication List Home Medication List Reviewed: Yes Review of Systems Constitutional: see HPI EENTM: see HPI Respiratory: no symptoms reported Cardiovascular: no symptoms reported Genitourinary: no symptoms reported Musculoskeletal: see HPI Skin: no symptoms reported Psychiatric/Neurological: No Symptoms Reported Past Odsvapi-[id number]-[id number] Hx Patient Social History Recent Foreign Travel: No Contact w/Someone Who Travel: No Recent Hopitalizations: No Immunizations Up To Date Date of Pneumonia Vaccine: Apr 07, 2015 Date of Influenza Vaccine: Apr 02, 2016 Seasonal Allergies Seasonal Allergies: Yes Past Medical History Surgeries: Yes (hysterectomy, eswls x 2, LEFT THYROIDECTOMY) Adenoidectomy, Gallbladder, Tonsillectomy Respiratory: No Cardiac: Yes High Cholesterol, Hypertension Neurological: Yes Headaches /Migraines Reproductive Disorders: No Sexually Transmitted Disease: No HIV/AIDS: No Kidney Stones Gastrointestinal: Yes Gastroesophageal Reflux, Diverticulosis, Irritable Bowel Musculoskeletal: Yes Arthritis Endocrine: Yes Diabetes, Non-Insulin dep Cancer: No Psychosocial: No Integumentary: No Blood Disorders: No Adverse Reaction/Blood Tranf: No Physical Exam Vital Signs Vital Signs - First Documented 03/08/18 14:38 Temp 97.8 Pulse 71 Resp 18 B/P (MAP) 175/88 (117) Pulse Ox 97 O2 Delivery Room Air Capillary Refill : Height, Weight, BMI Height: 5'4.00" Weight: 150lbs. 0.0oz. [id number]; 25.8 BMI Method:Stated General Appearance: WD/WN, no apparent distress HEENT: PERRL/EOMI, normal ENT inspection Neck: non-tender, full range of motion Respiratory: normal breath sounds, no respiratory distress, no accessory muscle use Hips: bilateral hip non-tender, bilateral hip normal inspection, bilateral hip normal range of motion Legs: bilateral leg non-tender, bilateral leg normal inspection, bilateral leg normal range of motion Knees: bilateral knee non-tender, bilateral knee normal inspection, bilateral knee normal range of motion Ankles: bilateral ankle non-tender, bilateral ankle normal inspection, bilateral ankle normal range of motion Feet: right foot pain, right foot soft tissue tenderness, right foot other (is no swelling but there is a bit of erythema over the dorsal aspect of the foot at the first MTP joint.) Neurologic/Tendon: normal sensation, normal motor functions Neurologic/Psychiatric: alert, normal mood/affect, oriented x 3 Skin: normal color, warm/dry Progress/Results/Core Measures Results/Orders My Orders Orders - DEBORAH COLE APRN Foot, Right, 3 View (03/08/18 14:38) Vital Signs/I&O 03/08/18 14:38 Temp 97.8 Pulse 71 Resp 18 B/P (MAP) 175/88 (117) Pulse Ox 97 O2 Delivery Room Air Departure Communication (Admissions) There is a nondisplaced oblique fracture of the shaft of the second and third metatarsal right foot. Given a walking boot Impression Primary Impression: Contusion of foot Additional Impression: Foot fracture, right Disposition: 01 HOME, SELF-CARE Condition: Stable Departure-Patient Inst. Decision time for Depature: 14:40 Referrals: FERDINAND ESPOSITO DO (PCP) Primary Care Physician TARYN CAMACHO (Family) Primary Care Physician Patient Instructions: Contusion (DC), Foot Fracture (DC) Add. Discharge Instructions: 1. Return to ER for any concerns 2. Follow-up with your doctor next week 3. Elevate the foot as much as possible for the rest of today. All discharge instructions reviewed with patient and/or family. Voiced understanding. DEBORAH COLE APRN Mar 08, 2018 14:41
[2018-03-08 15:10] VITALS: BP 175/88
--- NOTE | 2018-03-08 15:18 | Diagnostic Imaging Report ---
INDICATION: Right foot pain after injury. COMPARISON: None available. TECHNIQUE: Three views of the right foot were obtained. FINDINGS: There are transverse lucencies within the distal aspect of the second and third metatarsals likely due to nondisplaced fractures. These are best appreciated on the oblique view. These do not have intra-articular extension. No additional fracture. Moderate hallux valgus deformity. IMPRESSION: Nondisplaced simple oblique fractures in the distal diaphyses of the second and third metatarsals. Dictated by: Dictated on workstation # [id number]
== END 2018-03-08 15:22 | disposition home or self-care (01) ==
LOC: EDUNIT# 14:24 → ER 14:27
DX: S92.334A Nondisplaced fracture of third metatarsal bone, right foot, initial encounter for closed fracture (principal); E78.00 Pure hypercholesterolemia, unspecified; I10 Essential (primary) hypertension; K21.9 Gastro-esophageal reflux disease without esophagitis; E11.9 Type 2 diabetes mellitus without complications; G43.909 Migraine, unspecified, not intractable, without status migrainosus; Z91.041 Radiographic dye allergy status; Z87.442 Personal history of urinary calculi; Z87.19 Personal history of other diseases of the digestive system; Z79.84 Long term (current) use of oral hypoglycemic drugs; Z90.89 Acquired absence of other organs; W23.1XXA Caught, crushed, jammed, or pinched between stationary objects, initial encounter
CPT/HCPCS: 73630; 99283

== ENCOUNTER → 2018-06-22 | Outpatient (CLI) | payer OTHER, MEDICARE ==
[~2018-06-22] MED LIST changes: +METR-197 PO; -METR500T21 PO
--- NOTE | 2018-06-22 10:23 | Diagnostic Imaging Report ---
EXAMINATION: Abdominal radiographs, single supine view, 2 images. DATE: June 22, 2018. CLINICAL INDICATION: 68-year-old female, history of left renal stone. COMPARISON: February 17, 2018. COMMENTS: Right upper quadrant surgical clips most likely relate to prior cholecystectomy. There are no abnormally distended gas-filled segments of small or large bowel. There is moderate volume colonic stool. There is no radiographically apparent abnormal radiodensity overlying the kidneys or expected locations of the ureters. There are advanced disc and facet degenerative changes at L5-S1. IMPRESSION: 1. No radiographically apparent renal or ureteral stone. 2. No radiographically apparent acute abdominal abnormality. 3. Moderate volume of colonic stool. Dictated by: Dictated on workstation # [id number]
== END ==
LOC: RAD 09:34
PROVIDERS: ATTEND Urology
DX: N20.0 Calculus of kidney (principal)
CPT/HCPCS: 74018

== ENCOUNTER 2019-06-15 08:07 | Outpatient (RCR) | payer MEDICARE, OTHER ==
[~2019-06-15 08:07] MED LIST changes: -GLIM2TAB PO; +GLIM2TAB2 PO; +METR-145 PO; -METR-197 PO; -RANI-515 PO; +RANI-609 PO; -TAMS0.4C98 PO; +TMSL.4C PO
== END 2019-07-22 14:45 | disposition home or self-care (01) ==
PROVIDERS: ATTEND Nurse Practitioner
DX: M77.12 Lateral epicondylitis, left elbow (principal)

== ENCOUNTER 2022-03-23 05:43 | Outpatient (CLI) | payer MEDICARE, OTHER ==
[~2022-03-23] VITALS: Ht 162.5 cm; Wt 75.0 kg
[~2022-03-23 05:43] MED LIST changes: +ASPI81TA16 PO; +ATOR20TA66 PO; -CIPR500T4 PO; +CIPR500T5 PO; -GLIM2TAB2 PO; +GLIM2TAB4 PO; +GLIM4TAB5 PO; +LEVO50CA4 PO; -LISI-552 PO; +LISI20TA26 PO; +PIOG30TA71 PO; +TOPI25TA10 PO
== END 2022-03-23 15:26 | disposition home or self-care (01) ==
LOC: PREOP 05:43
PROVIDERS: ATTEND Specialist
DX: Z01.818 Encounter for other preprocedural examination (principal)

== ENCOUNTER 2022-03-30 12:11 | Day surgery (SDC) | payer MEDICARE, OTHER ==
[~2022-03-30] VITALS: Ht 162.5 cm; Wt 75.0 kg
[2022-03-30] MEDS ORDERED: MIDAZOLAM 2 MG/2 ML (VERSED) VIAL ONE (12:24)
[2022-03-30] MEDS ORDERED: TIMOLOL MALEATE 0.5% 5 ML (TIMOPTIC) BTL OU PRN (12:45)
[2022-03-30] MEDS ORDERED: POVIDONE (BETADINE) OPHTH SOLN 5% 30 ML OP ONE (12:45)
[2022-03-30] MEDS ORDERED: MOXIFLOXACIN OPHTH SOLN 5 MG/ML 0.3 ML SYRINGE OP ONE (12:45)
[2022-03-30] MEDS: TETRACAINE 0.5% OPHTH SOLN 4 ML BTL (SINGLE DOSE ONLY) OU PRN ×4 (12:51→13:07)
[2022-03-30] MEDS: PHENYLEPHRINE 10% OPHTH (NEO-SYN) 5 ML BTL OU SCH ×3 (12:58→13:07)
[2022-03-30] MEDS: TROPICAMIDE 1% OPH SOLN (MYDRIACYL) 15 ML BTL OP SCH ×3 (12:59→13:07)
[2022-03-30 13:23] VITALS: BP 152/79
--- NOTE | 2022-03-30 13:25 | Ophthalmologist Pre-Op Note ---
Pre-Operative Progress Note H&P Reviewed The H&P was reviewed, patient examined and no changes noted. Date H&P Reviewed: Mar 30, 2022 Time H&P Reviewed: 13:25 Pre-Op Dx Cataract, Left Eye CHIRAG BRADY MD Mar 30, 2022 13:25
[2022-03-30] MEDS ORDERED: acetaZOLAMIDE ER 500 MG CAP (DIAMOX SEQUELS) PO ONE (13:30)
--- NOTE | 2022-03-30 13:45 | Ophthalmology Operative Report ---
Cataract removal/placement IOL PREOPERATIVE DIAGNOSIS: Cataract Left Eye POSTOPERATIVE DIAGNOSIS: Cataract Left Eye PROCEDURE: Cataract removal and placement of posterior chamber implant, left eye SURGEON: Felix Brady ANESTHESIA: Topical with sedation COMPLICATIONS: None ESTIMATED BLOOD LOSS: Minimal DESCRIPTION OF PROCEDURE: After proper informed consent was obtained, the patient, a 72 female, was taken to the Operating Room and the left eye was anesthetized with tetracaine. The left eye was then prepped and draped in the usual manner. A wire lid speculum was placed. A paracentesis was made at the left hand position. Preservative free lidocaine was injected into the anterior chamber followed by viscoelastic. A clear corneal incision was made in the temporal position. A capsulorrhexis was preformed and the central nuclear and cortical material were removed. The posterior capsule was polished and an Tutu 19.5 [id number] was placed into the capsular bag. The residual viscoelastic was aspirated and balanced saline solution was injected into the anterior chamber. Moxifloxacin was injected into the anterior chamber. The wound was checked and found to be water tight. The patient tolerated the procedure well without complications. FELIX BRADY MD Mar 30, 2022 13:45
[2022-03-30 13:50] VITALS: BP 163/124
--- NOTE | 2022-03-30 14:09 | Anesthesia-General Post-Op ---
MAC Patient Condition Mental Status/LOC: Same as Preop Cardiovascular: Satisfactory Nausea/Vomiting: Absent Respiratory: Satisfactory Pain: Controlled Complications: Absent Post Op Complications Complications None Follow Up Care/Instructions Patient Instructions None needed. Anesthesiology Discharge Order Discharge Order Patient is doing well, no complaints, stable vital signs, no apparent adverse anesthesia problems. No complications reported per nursing. MITZI GOODE CRNA Mar 30, 2022 14:09
== END 2022-03-30 13:52 | disposition home or self-care (01) ==
LOC: SDC 12:11
PROVIDERS: ATTEND Specialist
DX: E11.36 Type 2 diabetes mellitus with diabetic cataract (principal); H25.9 Unspecified age-related cataract; Z79.84 Long term (current) use of oral hypoglycemic drugs; Z79.82 Long term (current) use of aspirin
CPT/HCPCS: 66984; V2632

== ENCOUNTER 2022-04-20 11:45 | Outpatient (CLI) | payer MEDICARE, OTHER ==
[2022-04-20] MEDS ORDERED: LEVO50TA6 (21:15)
[2022-04-20] MEDS ORDERED: PIOG15TA67 (21:15)
[2022-04-20] MEDS ORDERED: MELO7.5T46 (21:15)
[2022-04-20] MEDS ORDERED: TIZA-169 (21:15)
== END 2022-04-25 18:24 | disposition home or self-care (01) ==
LOC: PREOP 11:45
PROVIDERS: ATTEND Specialist
DX: Z01.818 Encounter for other preprocedural examination (principal)

== ENCOUNTER 2022-04-20 21:01 | Emergency (ER) | payer MEDICARE, OTHER ==
[~2022-04-20] VITALS: Ht 165 cm; Wt 75.0 kg
[2022-04-20] MEDS ORDERED: PIOG15TA67 (21:15)
[2022-04-20] MEDS ORDERED: TIZA-169 (21:15)
[2022-04-20] MEDS ORDERED: LEVO50TA6 (21:15)
[2022-04-20] MEDS ORDERED: MELO7.5T46 (21:15)
[2022-04-20] MEDS ORDERED: fentaNYL INJ 100 MCG/2 ML AMP IVP ONE (22:15)
[2022-04-20 22:31] LABS: BASOPHILS % (AUTO) 1 % (0-10); EOSINOPHILS # (AUTO) 0.2 10^3/uL (0.0-0.3); EOSINOPHILS % (AUTO) 3 % (0-10); HEMATOCRIT 45 % (35-52); LYMPHOCYTES # (AUTO) 2.1 10^3/uL (1.0-4.0); LYMPHOCYTES % (AUTO) 31 % (12-44); MEAN CORPUSCULAR HEMOGLOBIN 29 pg (25-34); MEAN CORPUSCULAR HGB CONC 33 g/dL (32-36); MEAN CORPUSCULAR VOLUME 89 fL (80-99); MEAN PLATELET VOLUME 10.9 fL (9.0-12.2); MONOCYTES # (AUTO) 0.9 10^3/uL (0.0-1.0); MONOCYTES % (AUTO) 13 % (0-12); NEUTROPHILS # (AUTO) 3.4 10^3/uL (1.8-7.8); NEUTROPHILS % (AUTO) 52 % (42-75); PLATELET COUNT 196 10^3/uL (130-400); WHITE BLOOD COUNT 6.6 10^3/uL (4.3-11.0)
[2022-04-20 22:50] LABS: ALBUMIN 3.8 GM/DL (3.2-4.5); BILIRUBIN,TOTAL 0.3 MG/DL (0.1-1.0); CALCIUM 9.5 MG/DL (8.5-10.1); CREATININE SERUM 0.91 MG/DL (0.60-1.30); POTASSIUM 4.1 MMOL/L (3.6-5.0); TOTAL PROTEIN 6.8 GM/DL (6.4-8.2)
[2022-04-21] MEDS ORDERED: KETOROLAC 30 MG/ML VIAL IVP ONE
--- NOTE | 2022-04-21 00:04 | ED Fall/Injury ---
General Chief Complaint: Trauma-Non Activation Stated Complaint: FALL,LT FOOT/LEG INJ,LT SHOULDER PAIN Nursing Triage Note: tripped while walking, c/o left foot, right knee, left shoulder pain. denies hitting head/loc/other injuries. Source: patient Exam Limitations: no limitations History of Present Illness Date Seen by Provider: Apr 20, 2022 Time Seen by Provider: 21:52 Initial Comments This 72-year-old woman presents to the emergency room by private vehicle after suffering a fall while walking in from the parking lot [place] a local [place]. She believes she tripped on a curb. She denies any prodrome such as lightheadedness, shortness of breath, weakness, or chest pain. She fell forward striking her face. She complains of left foot pain, right knee pain, left shoulder pain. She has bruising around the right forehead and periorbital region without pain. There was no loss of consciousness. She is not exhibiting any signs or symptoms of concussion. She does not take any blood thinning medications. She denies any vision changes. Allergies and Home Medications Allergies Coded Allergies: Iodinated Contrast- Oral and IV Dye (Unverified Allergy, Unknown, 02/05/18) iodine (Verified Allergy, Unknown, 02/07/06) Patient Home Medication List Home Medication List Reviewed: Yes Aspirin (Low Dose Aspirin EC) 81 Mg Tablet.dr, 81 MG PO HS, (Reported) Entered as Reported by: KENDELL AVERY on 03/22/221622 Atorvastatin Calcium (Atorvastatin Calcium) 20 Mg Tablet, 20 MG PO HS, (Reported) Entered as Reported by: KENDELL AVERY on 03/22/221622 Glimepiride (Glimepiride) 4 Mg Tablet, 4 MG PO BID, (Reported) Entered as Reported by: KENDELL AVERY on 03/22/221622 Levothyroxine Sodium (Levothyroxine) 50 Mcg Capsule, 50 MCG PO DAILY, (Reported) Entered as Reported by: KENDELL AVERY on 03/22/221622 Levothyroxine Sodium (Levothyroxine Sodium) 50 Mcg Tablet, (Reported) Entered as Reported by: FERNANDO MAX on 04/20/222114 Last Action: New Order Lisinopril (Lisinopril) 20 Mg Tablet, 20 MG PO DAILY, (Reported) Entered as Reported by: ALAINA CHATMAN on 08/23/16 1103 Meloxicam (Meloxicam) 7.5 Mg Tablet, (Reported) Entered as Reported by: FERNANDO MAX on 04/20/222114 Last Action: New Order Pioglitazone HCl (Pioglitazone HCl) 30 Mg Tablet, 30 MG PO DAILY, (Reported) Entered as Reported by: KENDELL AVERY on 03/22/221622 Pioglitazone HCl (Pioglitazone HCl) 15 Mg Tablet, (Reported) Entered as Reported by: FERNANDO MAX on 04/20/222114 Last Action: New Order Tizanidine HCl (Tizanidine HCl) 2 Mg Tablet, (Reported) Entered as Reported by: FERNANDO MAX on 04/20/222114 Last Action: New Order Topiramate (Topiramate) 25 Mg Tablet, 25 MG PO BID, (Reported) Entered as Reported by: KENDELL AVERY on 03/22/221622 Review of Systems Review of Systems Constitutional: no symptoms reported Eyes: No Symptoms Reported Ears, Nose, Mouth, Throat: no symptoms reported Respiratory: no symptoms reported Cardiovascular: no symptoms reported Gastrointestinal: no symptoms reported Genitourinary: no symptoms reported : No Musculoskeletal: see HPI Skin: see HPI Psychiatric/Neurological: No Symptoms Reported Past Arwyjsv-Erbftw-Qoaekg Hx Patient Social History Tobacco Use?: No Substance use?: No Alcohol Use?: Yes Alcohol Frequency: Once in a while Pt feels they are or have been: No Immunizations Up To Date First/Initial COVID19 Vaccinat: x2 Seasonal Allergies Seasonal Allergies: Yes Past Medical History Surgery/Hospitalization HX: cataract, cholecystectomy, hysterectomy, thryoidectomy, niddm, htn, hypothryoidism. Surgeries: Yes (hysterectomy, eswls x 2, LEFT THYROIDECTOMY) Adenoidectomy, Eye Surgery (Cataracts), Gallbladder, Thyroidectomy, Tonsillectomy Respiratory: No Cardiac: Yes High Cholesterol, Hypertension Neurological: Yes Headaches /Migraines Reproductive Disorders: No Sexually Transmitted Disease: No HIV/AIDS: No Genitourinary: Yes Kidney Stones Gastrointestinal: Yes Gastroesophageal Reflux, Diverticulosis, Irritable Bowel Musculoskeletal: Yes Arthritis Endocrine: Yes Diabetes, Non-Insulin dep Cancer: No Psychosocial: No Integumentary: No Blood Disorders: No Adverse Reaction/Blood Tranf: No Physical Exam Vital Signs Vital Signs - First Documented 04/20/22 21:08 Temp 36.6 Pulse 80 Resp 16 B/P (MAP) 171/94 (119) Pulse Ox 98 O2 Delivery Room Air Capillary Refill : Less Than 3 Seconds Height, Weight, BMI Height: 5'4.00" Weight: 165lbs. 0.0oz. 74.018902bb; 27.00 BMI Method:Estimated General Appearance: WD/WN, mild distress HEENT: PERRL/EOMI, TMs normal, other (No dental injury. Bruising lateral to the right eye and on the right lateral forehead. Subtle abrasion on right lateral forehead) Neck: normal inspection, tender midline (Posterior cervical spine) Cardiovascular: regular rate, rhythm, no edema, no murmur Respiratory: lungs clear, normal breath sounds, no respiratory distress, no accessory muscle use, other (Left upper anterior chest wall tender to palpation without any bruising evident) Gastrointestinal: normal bowel sounds, non tender, soft Extremities: other (Tenderness of the proximal left shoulder. Range of motion intact. Distal exam unremarkable. Right knee tender to palpation without notable edema. Left dorsal medial wharf tender head to palpation without obvious injury. Tenderness of the right mid thigh.) Neurologic/Psychiatric: superintendent overhead distribution II-XII nml as tested, no motor/sensory deficits, alert, normal mood/affect, oriented x 3 Skin: normal color, warm/dry Z[place]alla Coma Score Best Eye Response: (4) Open Spontaneously Best Verbal Response: (5) Oriented Best Motor Response: (6) Obeys Commands Z[place]alla Total: 15 Progress/Results/Core Measures Results/Orders Lab Results Laboratory Tests Test 04/20/22 22:12 Range/Units White Blood Count 6.6 4.3-11.0 10^3/uL Red Blood Count 5.12 H 3.80-5.11 10^6/uL Hemoglobin 15.0 11.5-16.0 g/dL Hematocrit 45 35-52 % Mean Corpuscular Volume 89 80-99 fL Mean Corpuscular Hemoglobin 29 25-34 pg Mean Corpuscular Hemoglobin Concent 33 32-36 g/dL Red Cell Distribution Width 12.7 10.0-14.5 % Platelet Count 196 130-400 10^3/uL Mean Platelet Volume 10.9 9.0-12.2 fL Immature Granulocyte % (Auto) 1 % Neutrophils (%) (Auto) 52 42-75 % Lymphocytes (%) (Auto) 31 12-44 % Monocytes (%) (Auto) 13 H 0-12 % Eosinophils (%) (Auto) 3 0-10 % Basophils (%) (Auto) 1 0-10 % Neutrophils # (Auto) 3.4 1.8-7.8 10^3/uL Lymphocytes # (Auto) 2.1 1.0-4.0 10^3/uL Monocytes # (Auto) 0.9 0.0-1.0 10^3/uL Eosinophils # (Auto) 0.2 0.0-0.3 10^3/uL Basophils # (Auto) 0.0 0.0-0.1 10^3/uL Immature Granulocyte # (Auto) 0.0 0.0-0.1 10^3/uL Sodium Level 140 135-145 MMOL/L Potassium Level 4.1 3.6-5.0 MMOL/L Chloride Level 110 H 98-107 MMOL/L Carbon Dioxide Level 19 L 21-32 MMOL/L Anion Gap 11 5-14 MMOL/L Blood Urea Nitrogen 22 H 7-18 MG/DL Creatinine 0.91 0.60-1.30 MG/DL Estimat Glomerular Filtration Rate 67 BUN/Creatinine Ratio 24 Glucose Level 189 H 70-105 MG/DL Calcium Level 9.5 8.5-10.1 MG/DL Corrected Calcium 9.7 8.5-10.1 MG/DL Total Bilirubin 0.3 0.1-1.0 MG/DL Aspartate Amino Transf (AST/SGOT) 23 5-34 U/L Alanine Aminotransferase (ALT/SGPT) 31 0-55 U/L Alkaline Phosphatase 65 40-136 U/L Total Protein 6.8 6.4-8.2 GM/DL Albumin 3.8 3.2-4.5 GM/DL My Orders Orders - JATINDER GARCIA MD Ct Head/Cervical Spine Wo (04/20/22 22:06) Ct Chest/Abdomen/Pelvis Wo (04/20/22 22:06) Shoulder, Left, 3 Views (04/20/22 22:06) Femur, Right, 2 Views (04/20/22 22:06) Knee, Right, 3 Views (04/20/22 22:06) Foot, Left, 3 Views (04/20/22 22:06) Fentanyl Inj (Sublimaze Injection) (04/20/22 22:15) Ed Iv/Invasive Line Start (04/20/22 22:06) Cbc With Automated Diff (04/20/22 22:06) Comprehensive Metabolic Panel (04/20/22 22:06) Ketorolac Injection (Toradol Injection) (04/21/22 00:00) Medications Given in ED Current Medications Medications Dose Ordered Sig/South Route Start Time Stop Time Status Last Admin Dose Admin Fentanyl Citrate 50 mcg ONCE ONCE IVP 04/20/22 22:15 04/20/22 22:16 DC 04/20/22 22:20 50 MCG Ketorolac Tromethamine 30 mg ONCE ONCE IVP 04/21/22 00:00 04/21/22 00:01 DC 04/21/22 00:05 30 MG Vital Signs/I&O 04/20/22 04/21/22 21:08 00:09 Temp 36.6 Pulse 80 81 Resp 16 20 B/P (MAP) 171/94 (119) 166/72 Pulse Ox 98 99 O2 Delivery Room Air Blood Pressure Mean: 119 Progress Progress Note #1: Progress Note C-collar was applied. IV established and labs drawn. Pain treated with fentanyl. Witnesses stated patient fell very hard and she has evidence of injury on her face and multiple areas of pain. Therefore imaging was obtained including CT head, cervical spine, chest, abdomen, and pelvis. No significant injuries were identified on imaging. Patient was further treated with Toradol and dismissed home with return precautions. There is an incidental finding of a right breast lesion measuring about 1.3 cm. I did discuss this with the patient advise she follow-up with her primary care provider for further evaluation. Progress Note #2: Progress Note It was noted after patient was discharged that the information discussed regarding the breast nodule was not placed in writing and discharge instructions. I did call the patient and visit with her by phone at 08:33 to make it very clear she needed to follow-up with her primary care provider for further evaluation of the breast nodule. Diagnostic Imaging Diagonstic Imaging: CT Plain Films/CT/US/NM/MRI: chest, abdomen, pelvis Comments CT chest, abdomen and pelvis viewed by me and report reviewed. See report below: NAME: ERICA VEE [facility] REC#: [id number] PT STATUS: DEP ER : 1950 PHYSICIAN: JATINDER GARCIA MD ADMIT DATE: 04/20/22/ER Draft Date of Exam:04/20/22 CT CHEST/ABDOMEN/PELVIS WO PROCEDURE: CT chest, abdomen, and pelvis without contrast. TECHNIQUE: Multiple contiguous axial images were obtained through the chest, abdomen, and pelvis without the use of intravenous contrast. Auto Exposure Controls were utilized during the CT exam to meet ALARA standards for radiation dose reduction. INDICATION: Fall. Trauma. COMPARISON: CT abdomen and pelvis without contrast 12/31/2017. FINDINGS: CT CHEST: Borderline heart size. No pericardial effusion. No mediastinal, hilar or axillary lymphadenopathy. Mild dependent atelectasis. The lungs are otherwise clear. No pleural effusion or pneumothorax. Chronic mildly angulated anterior rib fractures. Discrete 1.2 cm nodule in the medial right breast is indeterminate. CT abdomen and pelvis: Cholecystectomy. The liver, pancreas, spleen, adrenals and bladder are negative on this noncontrast exam. Small esophageal hiatal hernia. Hysterectomy. Nonobstructing calyceal tip renal stones in both kidneys. No ureteral stones or hydronephrosis. Normal appendix. No free intraperitoneal air or fluid. No lymphadenopathy. No evidence of bowel obstruction. No acute osseous findings. IMPRESSION: 1. No acute traumatic findings in the chest, abdomen or pelvis. 2. Indeterminate 1.2 cm discrete nodule in the medial right breast. Recommend nonemergent follow-up with diagnostic mammography. 3. Nonobstructing renal stones in both kidneys. No hydronephrosis. 4. Small esophageal hiatal hernia. Agree with preliminary interpretation. Dictated on workstation # [id number] Dict: 04/21/22711 Trans: 04/21/22720 [id number] Interpreted by: IVY ROBERSON MD Diagonstic Imaging: CT Plain Films/CT/US/NM/MRI: c-spine, head Comments CT head and C-spine reviewed by me and report reviewed. See report below: NAME: ERICA [facility]EE [facility] REC#: [id number] PT STATUS: DEP ER : 1950 PHYSICIAN: JATINDER GARCIA MD ADMIT DATE: 04/20/22/ER Draft Date of Exam:04/20/22 CT HEAD/CERVICAL SPINE WO PROCEDURE: CT head and CT cervical spine without contrast. TECHNIQUE: Multiple contiguous axial images were obtained through the brain and cervical spine without the use of intravenous contrast. Sagittal and coronal reformations through the cervical spine were then performed. Auto Exposure Controls were utilized during the CT exam to meet ALARA standards for radiation dose reduction. INDICATION: Fall with head and neck pain. COMPARISON: None. 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 No acute intracranial hemorrhage, mass, midline shift, hydrocephalus. The ventricles and sulci are normal size and configuration for age. The orbits, sinuses, mastoid air cells, and calvarium are unremarkable. Cervical spine: Mild degenerative disc disease is noted throughout. Moderately advanced facet arthropathy is noted throughout. No acute fracture or subluxation. Alignment is anatomic. Paraspinal soft tissues are unremarkable. IMPRESSION: 1. Negative head CT. 2. Degenerative disease noted within the cervical spine. No acute fracture. 3. Agree with preliminary report. Dictated on workstation # [id number] Dict: 04/21/22 0536 Trans: 04/21/22 0554 [id number] Interpreted by: APRIL ERAZO MD Diagonstic Imaging: Xray Plain Films/CT/US/NM/MRI: leg Comments Right femur x-rays viewed by me and report reviewed. See report below: NAME: ERICA [facility]EE [facility] REC#: [id number] PT STATUS: DEP ER : 1950 PHYSICIAN: JATINDER GARCIA MD ADMIT DATE: 04/20/22/ER Draft Date of Exam:04/20/22 FEMUR, RIGHT, 2 VIEWS EXAM: FEMUR, RIGHT, 2 VIEWS INDICATION: Fall. Trauma. Right leg pain. COMPARISON: None. FINDINGS: No fracture or malalignment. Vascular calcifications. IMPRESSION: No acute radiographic findings in the right femur. Dictated on workstation # [id number] Dict: 04/21/2209 Trans: 04/21/22 07 [id number] Interpreted by: IVY ROBERSON MD Diagonstic Imaging: Xray Plain Films/CT/US/NM/MRI: other (Left foot) Comments Left foot x-rays viewed by me and report reviewed. See report below: NAME: ERICA VEE [facility] REC#: [id number] PT STATUS: [facility] : 1950 PHYSICIAN: JATINDER GARCIA MD ADMIT DATE: 04/20/22/ER Draft Date of Exam:04/20/22 FOOT, LEFT, 3 VIEWS EXAM: FOOT, LEFT, 3 VIEWS INDICATION: Left foot pain. COMPARISON: None. FINDINGS: No fracture or malalignment. Soft tissue shadows are unremarkable. IMPRESSION: No acute radiographic findings in the left foot. Dictated on workstation # [id number] Dict: 04/21/2208 Trans: 04/21/2216 [id number] Interpreted by: IVY ORBERSON MD Diagonstic Imaging: Xray Plain Films/CT/US/NM/MRI: knee Comments Right knee x-rays reviewed by me and report reviewed. See report below: NAME: ERICA VEE [facility] REC#: [id number] PT STATUS: [facility] : 1950 PHYSICIAN: JATINDER GARCIA MD ADMIT DATE: 04/20/22/ER Draft Date of Exam:04/20/22 KNEE, RIGHT, 3 VIEWS EXAM: KNEE, RIGHT, 3 VIEWS INDICATION: Trauma. Fall. Right knee pain. COMPARISON: Right femur radiographs also performed today. FINDINGS: No fracture or malalignment. Mild tricompartmental degenerative changes. Demineralization. Soft tissue shadows are unremarkable. IMPRESSION: No acute radiographic findings in the right knee. Dictated on workstation # [id number] Dict: 04/21/2210 Trans: 04/21/22 0718 [id number] Interpreted by: IVY ROBERSON MD Diagonstic Imaging: Xray Plain Films/CT/US/NM/MRI: other (Left shoulder) Comments Left shoulder x-rays viewed by me and report reviewed. See report below: NAME: ERICA [facility]EE [facility] REC#: [id number] PT STATUS: DEP ER : 1950 PHYSICIAN: JATINDER GARCIA MD ADMIT DATE: 04/20/22/ER Draft Date of Exam:04/20/22 SHOULDER, LEFT, 3 VIEWS EXAM: SHOULDER, LEFT, 3 VIEWS INDICATION: Left shoulder pain. COMPARISON: None. FINDINGS: No fracture or malalignment. Soft tissue shadows are unremarkable. IMPRESSION: No acute radiographic findings in the left shoulder. Dictated on workstation # [id number] Dict: 04/21/22706 Trans: 04/21/22723 [id number] Interpreted by: IVY ROBERSON MD Departure Impression Primary Impression: Fall on same level from tripping Additional Impressions: Facial contusion Qualified Codes: S00.83XA - Contusion of other part of head, initial encounter Chest wall pain Right knee pain Qualified Codes: M25.561 - Pain in right knee Left shoulder pain Qualified Codes: M25.512 - Pain in left shoulder Breast nodule Disposition: 01 HOME, SELF-CARE Condition: Improved Departure-Patient Inst. Decision time for Depature: 00:02 Referrals: TARYN CAMACHO (PCP/Family) Primary Care Physician Patient Instructions: Contusion (DC) Add. Discharge Instructions: You may take Tylenol (acetaminophen) up to 1000 mg every 6 hours as needed for pain. You may additionally take ibuprofen up to 600 mg every 6 hours as needed for additional pain relief. Do not take any ibuprofen until after 6 AM since the IV pain medication you received in the ER is equivalent to ibuprofen. Drink plenty of clear liquids to stay well-hydrated. Avoid remaining sedentary as this will cause you to be more stiff and sore. You may ice injured areas in 20-minute intervals for the next 1 to 2 days. Then gentle heat should help you relax sore or tense areas. Bruising may develop and worsen over the next several days. Return to the ER if you have worsening symptoms, develop new symptoms such as vomiting, or have any other concerning developments. All discharge instructions reviewed with patient and/or family. Voiced understanding. JATINDER GARCIA MD Apr 21, 2022 00:04
[2022-04-21 00:09] VITALS: BP 166/72
--- NOTE | 2022-04-21 05:54 | Diagnostic Imaging Report ---
PROCEDURE: CT head and CT cervical spine without contrast. TECHNIQUE: Multiple contiguous axial images were obtained through the brain and cervical spine without the use of intravenous contrast. Sagittal and coronal reformations through the cervical spine were then performed. Auto Exposure Controls were utilized during the CT exam to meet ALARA standards for radiation dose reduction. INDICATION: Fall with head and neck pain. COMPARISON: None. 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 No acute intracranial hemorrhage, mass, midline shift, hydrocephalus. The ventricles and sulci are normal size and configuration for age. The orbits, sinuses, mastoid air cells, and calvarium are unremarkable. Cervical spine: Mild degenerative disc disease is noted throughout. Moderately advanced facet arthropathy is noted throughout. No acute fracture or subluxation. Alignment is anatomic. Paraspinal soft tissues are unremarkable. IMPRESSION: 1. Negative head CT. 2. Degenerative disease noted within the cervical spine. No acute fracture. 3. Agree with preliminary report. Dictated by: Dictated on workstation # [id number]
--- NOTE | 2022-04-21 07:17 | Diagnostic Imaging Report ---
EXAM: FEMUR, RIGHT, 2 VIEWS INDICATION: Fall. Trauma. Right leg pain. COMPARISON: None. FINDINGS: No fracture or malalignment. Vascular calcifications. IMPRESSION: No acute radiographic findings in the right femur. Dictated by: Dictated on workstation # [id number]
--- NOTE | 2022-04-21 07:17 | Diagnostic Imaging Report ---
EXAM: FOOT, LEFT, 3 VIEWS INDICATION: Left foot pain. COMPARISON: None. FINDINGS: No fracture or malalignment. Soft tissue shadows are unremarkable. IMPRESSION: No acute radiographic findings in the left foot. Dictated by: Dictated on workstation # [id number]
--- NOTE | 2022-04-21 07:18 | Diagnostic Imaging Report ---
EXAM: KNEE, RIGHT, 3 VIEWS INDICATION: Trauma. Fall. Right knee pain. COMPARISON: Right femur radiographs also performed today. FINDINGS: No fracture or malalignment. Mild tricompartmental degenerative changes. Demineralization. Soft tissue shadows are unremarkable. IMPRESSION: No acute radiographic findings in the right knee. Dictated by: Dictated on workstation # [id number]
--- NOTE | 2022-04-21 07:21 | Diagnostic Imaging Report ---
PROCEDURE: CT chest, abdomen, and pelvis without contrast. TECHNIQUE: Multiple contiguous axial images were obtained through the chest, abdomen, and pelvis without the use of intravenous contrast. Auto Exposure Controls were utilized during the CT exam to meet ALARA standards for radiation dose reduction. INDICATION: Fall. Trauma. COMPARISON: CT abdomen and pelvis without contrast 12/31/2017. FINDINGS: CT CHEST: Borderline heart size. No pericardial effusion. No mediastinal, hilar or axillary lymphadenopathy. Mild dependent atelectasis. The lungs are otherwise clear. No pleural effusion or pneumothorax. Chronic mildly angulated anterior rib fractures. Discrete 1.2 cm nodule in the medial right breast is indeterminate. CT abdomen and pelvis: Cholecystectomy. The liver, pancreas, spleen, adrenals and bladder are negative on this noncontrast exam. Small esophageal hiatal hernia. Hysterectomy. Nonobstructing calyceal tip renal stones in both kidneys. No ureteral stones or hydronephrosis. Normal appendix. No free intraperitoneal air or fluid. No lymphadenopathy. No evidence of bowel obstruction. No acute osseous findings. IMPRESSION: 1. No acute traumatic findings in the chest, abdomen or pelvis. 2. Indeterminate 1.2 cm discrete nodule in the medial right breast. Recommend nonemergent follow-up with diagnostic mammography. 3. Nonobstructing renal stones in both kidneys. No hydronephrosis. 4. Small esophageal hiatal hernia. Agree with preliminary interpretation. Dictated by: Dictated on workstation # [id number]
--- NOTE | 2022-04-21 07:24 | Diagnostic Imaging Report ---
EXAM: SHOULDER, LEFT, 3 VIEWS INDICATION: Left shoulder pain. COMPARISON: None. FINDINGS: No fracture or malalignment. Soft tissue shadows are unremarkable. IMPRESSION: No acute radiographic findings in the left shoulder. Dictated by: Dictated on workstation # [id number]
== END 2022-04-21 00:17 | disposition home or self-care (01) ==
LOC: EDUNIT# 21:01 → ER 21:05
DX: S05.11XA Contusion of eyeball and orbital tissues, right eye, initial encounter (principal); R07.89 Other chest pain; M25.561 Pain in right knee; M25.512 Pain in left shoulder; N63.10 Unspecified lump in the right breast, unspecified quadrant; W01.0XXA Fall on same level from slipping, tripping and stumbling without subsequent striking against object, initial encounter; Y92.481 Parking lot as the place of occurrence of the external cause; Y93.01 Activity, walking, marching and hiking
CPT/HCPCS: 36415; 70450; 71250; 72125; 73030; 73552; 73562; 73630; 74176; 80053; 85025

== ENCOUNTER 2022-04-27 07:04 | Day surgery (SDC) | payer MEDICARE, OTHER ==
[~2022-04-27] VITALS: Ht 162.5 cm; Wt 75.0 kg
[~2022-04-27 07:04] MED LIST changes: +LEVO50TA6; +MELO7.5T46; +PIOG15TA67; +TIZA-169
[2022-04-27] MEDS ORDERED: TIMOLOL MALEATE 0.5% 5 ML (TIMOPTIC) BTL OU PRN (07:15)
[2022-04-27] MEDS ORDERED: POVIDONE (BETADINE) OPHTH SOLN 5% 30 ML OP ONE (07:15)
[2022-04-27] MEDS: TETRACAINE 0.5% OPHTH SOLN 4 ML BTL (SINGLE DOSE ONLY) OU PRN ×2 (07:15→07:36)
[2022-04-27] MEDS ORDERED: MOXIFLOXACIN OPHTH SOLN 5 MG/ML 0.3 ML SYRINGE OP ONE (07:15)
[2022-04-27 07:21] VITALS: BP 162/78
[2022-04-27] MEDS: TROPICAMIDE 1% OPH SOLN (MYDRIACYL) 15 ML BTL OP SCH ×3 (07:24→07:36)
[2022-04-27] MEDS: PHENYLEPHRINE 10% OPHTH (NEO-SYN) 5 ML BTL OU SCH ×3 (07:24→07:36)
[2022-04-27] MEDS ORDERED: MIDAZOLAM 2 MG/2 ML (VERSED) VIAL ONE (07:45)
--- NOTE | 2022-04-27 08:04 | Ophthalmologist Pre-Op Note ---
Pre-Operative Progress Note H&P Reviewed The H&P was reviewed, patient examined and no changes noted. Date H&P Reviewed: Apr 27, 2022 Time H&P Reviewed: 08:04 Pre-Op Dx Cataract, Right Eye CHIRAG BRADY MD Apr 27, 2022 08:04
--- NOTE | 2022-04-27 08:24 | Ophthalmology Operative Report ---
Cataract removal/placement IOL PREOPERATIVE DIAGNOSIS: Cataract Right Eye POSTOPERATIVE DIAGNOSIS: Cataract Right Eye PROCEDURE: Cataract removal and placement of posterior chamber implant, right eye SURGEON: Felix Brady ANESTHESIA: Topical with sedation COMPLICATIONS: None ESTIMATED BLOOD LOSS: Minimal DESCRIPTION OF PROCEDURE: After proper informed consent was obtained, the patient, a 72 female, was taken to the Operating Room and the right eye was anesthetized with tetracaine. The right eye was then prepped and draped in the usual manner. A wire lid speculum was placed. A paracentesis was made at the left hand position. Preservative free lidocaine was injected into the anterior chamber followed by viscoelastic. A clear corneal incision was made in the temporal position. A capsulorrhexis was preformed and the central nuclear and cortical material were removed. The posterior capsule was polished and Tutu 20.0 AU00T0 IOL was placed into the capsular bag. The residual viscoelastic was aspirated and balanced saline solution was injected into the anterior chamber. Moxifloxacin was injected into the anterior chamber. The wound was checked and found to be water tight. The patient tolerated the procedure well without complications. FELIX BRADY MD Apr 27, 2022 08:23
[2022-04-27 08:28] VITALS: BP 170/73
[2022-04-27] MEDS ORDERED: acetaZOLAMIDE ER 500 MG CAP (DIAMOX SEQUELS) PO ONE (10:00)
--- NOTE | 2022-04-27 12:35 | Anesthesia-General Post-Op ---
MAC Patient Condition Mental Status/LOC: Same as Preop Cardiovascular: Satisfactory Nausea/Vomiting: Absent Respiratory: Satisfactory Pain: Controlled Complications: Absent Post Op Complications Complications None Follow Up Care/Instructions Patient Instructions None needed. Anesthesiology Discharge Order Discharge Order Patient is doing well, no complaints, stable vital signs, no apparent adverse anesthesia problems. No complications reported per nursing. MITZI GOODE CRNA Apr 27, 2022 12:35
== END 2022-04-27 08:30 | disposition home or self-care (01) ==
LOC: SDC 07:04
PROVIDERS: ATTEND Specialist
DX: E11.36 Type 2 diabetes mellitus with diabetic cataract (principal); H25.9 Unspecified age-related cataract; Z79.84 Long term (current) use of oral hypoglycemic drugs
CPT/HCPCS: 66984; V2632

== ENCOUNTER → 2022-05-11 | Outpatient (CLI) | payer MEDICARE ==
[~2022-05-11] VITALS: Ht 165.1 cm; Wt 68.2 kg
[~2022-05-11] MED LIST changes: +LIDOCAINE 1% INJ 30 ML (XYLOCAINE) VIAL INJ ONE
--- NOTE | 2022-05-11 12:13 | Diagnostic Imaging Report ---
Indication: Right breast mass. Patient presents for ultrasound-guided biopsy. The patient was brought to the sonographic suite and placed on the table in the supine position. Ultrasound imaging of the right breast was performed to evaluate appropriate entry site. The right breast was then prepped and draped in the usual sterile fashion. A small amount of 1% lidocaine was utilized for local anesthesia. A total of 4 core biopsies were obtained of the hypoechoic mass at the 1:00 location of the right breast, utilizing the 14-gauge Achieve needle. A marker clip was deployed. Hemostasis was obtained using manual compression. The patient tolerated the procedure well and was sent for a postprocedure mammogram in satisfactory condition. IMPRESSION: Successful ultrasound-guided core biopsy of the solid mass at the 1:00 location of the right breast. Pathology results are currently pending. Dictated by: Dictated on workstation # [id number]
--- NOTE | 2022-05-11 17:39 | Diagnostic Imaging Report ---
Indication: Right breast mass, status post biopsy. Unilateral right 2-D CC, MLO and ML mammography was performed after patient underwent ultrasound-guided biopsy. There is a marker clip in the lesion in the far posterior aspect of the right breast. IMPRESSION: Marker clip placement, status post ultrasound-guided biopsy. Dictated by: Dictated on workstation # [id number]
== END ==
LOC: RAD 10:41
PROVIDERS: ATTEND Nurse Practitioner
DX: N63.12 Unspecified lump in the right breast, upper inner quadrant (principal); Z98.890 Other specified postprocedural states
CPT/HCPCS: 19083; 77065; G0279

== ENCOUNTER → 2022-09-21 | Outpatient (RCR) | payer MEDICARE, OTHER ==
[~2022-09-21] MED LIST changes: -LIDOCAINE 1% INJ 30 ML (XYLOCAINE) VIAL INJ ONE
== END | disposition home or self-care (01) ==
LOC: ONC 08-27 08:48
PROVIDERS: ATTEND Radiology Radiation Oncology
DX: Z51.0 Encounter for antineoplastic radiation therapy (principal); C50.211 Malignant neoplasm of upper-inner quadrant of right female breast
CPT/HCPCS: 77280; 77290; 77295; 77300; 77307; 77334; 77336; 77417; 99205

== ENCOUNTER 2022-10-01 09:00 | Outpatient (RCR) | payer MEDICARE, OTHER | END 2022-10-21 | disposition home or self-care (01) | LOC: ONC 09:00 | PROVIDERS: ATTEND Radiology Radiation Oncology | DX: C50.211 Malignant neoplasm of upper-inner quadrant of right female breast (principal) | CPT/HCPCS: 77280; 77336 ==

== ENCOUNTER → 2022-10-02 | Outpatient (CLI) | payer MEDICARE, OTHER ==
--- NOTE | 2022-10-02 14:37 | Diagnostic Imaging Report ---
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 COMPARISON: None available FINDINGS: AP Spine L1-L4: [BMD (g/cm2): 0.910] [T-Score: -2.4] [Z-Score: -0.7] [BMD Previous: na] [BMD % Change: na] LT Hip Neck: [BMD (g/cm2): 0.671] [T-Score: -2.6] [Z-Score: -0.9] LT Hip Total: [BMD (g/cm2):0.745] [T-Score:-2.1] [Z-Score: -0.5] [BMD Previous: na] [BMD % Change: na] RT Hip Neck: [BMD (g/cm2):0.688] [T-Score:-2.5] [Z-Score:-0.7] RT Hip Total: [BMD (g/cm2):0.739] [T-score:-2.1] [Z-Score:-0.5] [BMD Previous:na] [BMD % Change:na] *Indicates significant change from prior examination based on 95% confidence level. World Health Organization criteria for BMD interpretation classify patients as Normal (T-score at or above -1.0), Osteopenic (T-score between -1.0 and -2.5) or Osteoporotic (T-score at or below -2.5). LIMITATIONS AND MODIFICATION: None. FRACTURE RISK (FRAX SCORE): The ten year probability of (%): Major Osteoporotic Fracture: [24.9] Hip Fracture: [7.3] IMPRESSION: 1. Osteoporosis. 2. Baseline examination. 3. See below National Osteoporosis Foundation guidelines on when to potentially initiate pharmacologic therapy. Based on the National Osteoporosis Foundation Guidelines, pharmacologic treatment should be initiated in any of the following, unless clinical conditions suggest otherwise: * Any patient with prior fragility fracture of the hip or vertebrae. A spine fracture indicates 5X risk for subsequent spine fracture and 2X risk for subsequent hip fracture. * Osteoporosis (T-score <-2.5). * Postmenopausal women and men age 50 and older with low bone mass/osteopenia (T-score between -1.0 and -2.5) by DXA and 10-year major osteoporotic fracture greater than 20% or a 10-year probability of hip fracture greater than 3%. These fracture risks are supplied above in the FRAX score, if applicable. * Clinician judgement and/or patient preferences may indicate treatment for people with 10-year fracture probabilities above or below these levels. Dictated by: Dictated on workstation # [id number]
== END ==
LOC: RAD 10:33
PROVIDERS: ATTEND Internal Medicine Hematology & Oncology
DX: M81.0 Age-related osteoporosis without current pathological fracture (principal); C50.211 Malignant neoplasm of upper-inner quadrant of right female breast; Z78.0 Asymptomatic menopausal state
CPT/HCPCS: 77080

== ENCOUNTER 2022-10-25 10:47 | Outpatient (RCR) | payer MEDICARE, OTHER | END 2022-11-21 | disposition home or self-care (01) | LOC: ONC 10:47 | PROVIDERS: ATTEND Radiology Radiation Oncology | DX: C50.211 Malignant neoplasm of upper-inner quadrant of right female breast (principal); E11.9 Type 2 diabetes mellitus without complications; I10 Essential (primary) hypertension | CPT/HCPCS: 99213 ==